=== PATIENT | female | born 2000 | race Caucasian/White ===

== ENCOUNTER 2019-10-20 08:00 | Outpatient (CLI) | payer BC ==
--- NOTE | 2019-10-20 08:08 | XRAY Report ---
Reason: RIGHT SHOULDER PAIN Procedure Date: 10/20/2019 Accession Number: [id number] / [id number] Procedure: WCP - Shoulder 3 View RT CPT Code: Final Report FULL RESULT: EXAM: RIGHT SHOULDER RADIOGRAPHY EXAM DATE: 10/20/2019 07:59 AM. CLINICAL HISTORY: RIGHT SHOULDER PAIN. COMPARISON: None. TECHNIQUE: 3 views. FINDINGS: Bones: Normal. No fracture or bone lesion. Joints: The glenohumeral and acromioclavicular joints are normal. Soft tissues: The visualized hemithorax is unremarkable. No soft tissue swelling. IMPRESSION: Normal shoulder radiography. RADIA
== END 2019-10-20 23:59 | disposition home or self-care (01) ==
LOC: DI.WCP 08:00
PROVIDERS: ATTEND Nurse Practitioner Family
DX: M25.511 Pain in right shoulder (principal)

== ENCOUNTER 2020-10-30 08:00 | Outpatient (CLI) | payer BC, OTHER ==
[2020-10-30 17:45] LABS: BASOPHILS # (AUTO) 0.1 10^3/uL (0.0-0.1); BASOPHILS % (AUTO) 0.9 %; EOSINOPHILS # (AUTO) 0.2 10^3/uL (0.0-0.7); EOSINOPHILS % (AUTO) 1.8 %; HCT - HEMATOCRIT 37.7 % (37.0-47.0); HGB - HEMOGLOBIN 12.1 g/dL (12.0-16.0); LYMPHOCYTES # (AUTO) 2.1 10^3/uL (1.5-3.5); LYMPHOCYTES % (AUTO) 22.5 %; MEAN CORPUSCULAR HEMOGLOBIN 27.4 pg (27.0-31.0); MEAN CORPUSCULAR HGB CONC 32.1 g/dL (32.0-36.0); MEAN CORPUSCULAR VOLUME 85.5 fL (81.0-99.0); MEAN PLATELET VOLUME 9.1 fL (7.9-10.8); MONOCYTES # (AUTO) 0.7 10^3/uL (0.0-1.0); NEUTROPHILS # (AUTO) 6.2 10^3/uL (1.5-6.6); NEUTROPHILS % (AUTO) 66.6 %; PLT - PLATELET COUNT 532 10^3/uL (130-450); RED BLOOD COUNT 4.41 10^6/uL (4.20-5.40); RED CELL DISTRIBUTION WIDTH 12.7 % (12.0-15.0); WHITE BLOOD COUNT 9.2 x10^3/uL (4.8-10.8)
[2020-10-30 18:13] LABS: ALBUMIN 3.9 g/dL (3.2-5.5); ALBUMIN/GLOBULIN RATIO 1.1 (1.0-2.2); BILIRUBIN,TOTAL 0.7 mg/dL (0.2-1.0); CALCIUM 9.7 mg/dL (8.5-10.3); CREATININE 0.4 mg/dL (0.4-1.0); POTASSIUM 4.2 mmol/L (3.5-5.0); TOTAL PROTEIN 7.5 g/dL (6.7-8.2)
== END 2020-10-30 23:59 | disposition home or self-care (01) ==
LOC: LAB.WCP 08:00
PROVIDERS: ATTEND Nurse Practitioner Family
DX: R19.7 Diarrhea, unspecified (principal)
CPT/HCPCS: 36415; 80053; 85025

== ENCOUNTER 2021-09-20 09:34 | Outpatient (CLI) | payer OTHER ==
[2021-09-20 12:37] LABS: BASOPHILS # (AUTO) 0.1 10^3/uL (0.0-0.1); BASOPHILS % (AUTO) 0.8 %; EOSINOPHILS # (AUTO) 0.1 10^3/uL (0.0-0.7); EOSINOPHILS % (AUTO) 1.2 %; HCT - HEMATOCRIT 38.2 % (37.0-47.0); HGB - HEMOGLOBIN 11.9 g/dL (12.0-16.0); LYMPHOCYTES # (AUTO) 1.7 10^3/uL (1.5-3.5); LYMPHOCYTES % (AUTO) 20.1 %; MEAN CORPUSCULAR HEMOGLOBIN 26.1 pg (27.0-31.0); MEAN CORPUSCULAR HGB CONC 31.2 g/dL (32.0-36.0); MEAN CORPUSCULAR VOLUME 83.8 fL (81.0-99.0); MEAN PLATELET VOLUME 9.2 fL (7.9-10.8); MONOCYTES # (AUTO) 0.5 10^3/uL (0.0-1.0); MONOCYTES % (AUTO) 6.4 %; NEUTROPHILS % (AUTO) 71.1 %; PLT - PLATELET COUNT 575 10^3/uL (130-450); RED BLOOD COUNT 4.56 10^6/uL (4.20-5.40); RED CELL DISTRIBUTION WIDTH 13.7 % (12.0-15.0); WHITE BLOOD COUNT 8.5 x10^3/uL (4.8-10.8)
[2021-09-20 13:27] LABS: ALBUMIN/GLOBULIN RATIO 1.1 (1.0-2.2); ALKALINE PHOSPHATASE 68 IU/L (42-121); ALT ALANINE AMINOTRANSFERASE 21 IU/L (10-60); AST ASPARTATE AMINOTRANSFERASE 17 IU/L (10-42); BILIRUBIN,TOTAL 0.9 mg/dL (0.2-1.0); BUN - BLOOD UREA NITROGEN 13 mg/dL (6-20); CALCIUM 9.5 mg/dL (8.5-10.3); CARBON DIOXIDE - CO2 27 mmol/L (21-32); CHLORIDE 102 mmol/L (101-111); CHOL/HDL RATIO 3.5 (<4.4); CHOLESTEROL 157 mg/dL; CREATININE 0.6 mg/dL (0.4-1.0); GFR - MDRD 124 (>89); GLUCOSE 101 mg/dL (70-100); HDL CHOLESTEROL 45 mg/dL; LDL CHOLESTEROL,CALCULATED 91 mg/dL; POTASSIUM 4.3 mmol/L (3.5-5.0); SODIUM 137 mmol/L (135-145); TOTAL PROTEIN 7.7 g/dL (6.7-8.2); TRIGLYCERIDES 105 mg/dL; VLDL CHOLESTEROL 21 mg/dL
[2021-09-20 13:32] LABS: THYROID STIMULATING HORMONE 0.82 uIU/mL (0.34-5.60)
[2021-09-20 13:51] LABS: ESTIMATED AVERAGE GLUCOSE 108 mg/dL (70-100); HEMOGLOBIN A1c% 5.4 % (4.27-6.07)
== END 2021-09-20 09:35 | disposition home or self-care (01) ==
LOC: LAB.N 09:34
PROVIDERS: ATTEND Physician Assistant
DX: K76.0 Fatty (change of) liver, not elsewhere classified (principal); Z13.9 Encounter for screening, unspecified; Z13.1 Encounter for screening for diabetes mellitus; Z13.29 Encounter for screening for other suspected endocrine disorder
CPT/HCPCS: 36415; 80053; 80061; 83036; 83721; 84443; 85025

== ENCOUNTER 2022-04-15 11:04 | Day surgery (SDC) | payer MEDICAID ==
[2022-04-15 11:22] LABS: HCG UR QUAL NEGATIVE
[2022-04-15] MEDS ORDERED: LACTATED RINGERS 1,000 ML IV ONE (11:29)
[2022-04-15] MEDS ORDERED: LIDOCAINE 1% 50 ML MDV ONE (13:45)
[2022-04-15] MEDS ORDERED: HYDROmorphone 0.5 MG/0.5 ML SYRINGE IVP PRN (13:49)
[2022-04-15] MEDS ORDERED: METOCLOPRAMIDE 10 MG/2 ML VIAL IVP PRN (13:49)
[2022-04-15] MEDS ORDERED: ePHEDrine 50 MG/ML VIAL IVP PRN (13:49)
[2022-04-15] MEDS ORDERED: ONDANSETRON 4 MG/2 ML VIAL IVP PRN (13:49)
[2022-04-15] MEDS ORDERED: fentaNYL 100 MCG/2 ML VIAL IVP PRN (13:49)
[2022-04-15] MEDS ORDERED: ATROPINE ABBOJECT 1 MG/10 ML SYRINGE IVP PRN (13:49)
[2022-04-15] MEDS ORDERED: MORPHINE 2 MG/ML CARPUJECT IVP PRN (13:49)
[2022-04-15] MEDS ORDERED: NALOXONE 0.4 MG/ML VIAL IVP PRN (13:49)
--- NOTE | 2022-04-15 13:49 | ANESTHESIA ---
Pre-Anesthesia VS, & Labs - Diagnosis desires IUD - Procedure IUD placement Vital Signs: Temp Pulse Resp BP Pulse Ox 36.7 C 75 18 158/96 H 98 04/15/22 11:18 04/15/22 11:18 04/15/22 11:18 04/15/22 11:18 04/15/22 11:18 Height: 5 ft 7 in Weight (kg): 127.9 kg Body Mass Index: 44.1 BMI Classification: Morbidly Obese - NPO >8 hours - Is Patient ?: No Home Medications and Allergies Home Medications: Ambulatory Orders No Known Home Medications 04/09/22 No Known Home Medications 04/09/22 Allergies/Adverse Reactions: Allergies Allergy/AdvReac Type Severity Reaction Status Date / Time No Known Drug Allergies Allergy Verified 04/14/22 11:55 Anes History & Medical History - Anesthetic History Anesthesia Complications: reports: No previous complications Family history of Anesthesia Complications: Denies Family history of Malignant Hyperthermia: Denies - Medical History Cardiovascular: reports: None Pulmonary: reports: None Gastrointestinal: reports: None Urinary: reports: None Musculoskeletal: reports: None Endocrine/Autoimmune: reports: None Skin: reports: Eczema - Surgical History General: reports: Cholecystectomy Exam General: Alert, Oriented x3, Cooperative Dental: WNL Mouth Openin Fingerbreadth Neck Mobility: Normal Mallampati classification: III Thyromental Distance: less than 4 cm Respiratory: Lungs clear Cardiovascular: Regular rate Plan Anesthesia Type: General Consent for Procedure(s) Verified and Reviewed: Yes Code Status: Attempt Resuscitation ASA classification: 2-Mild systemic disease Is this case an emergency?: No
[2022-04-15] MEDS ORDERED: LEVONORGESTREL 20 MCG/24H IUD IY ONE ×2 (13:52→14:42)
[2022-04-15] MEDS ORDERED: LACTATED RINGERS 1,000 ML IV SCH (14:00)
[2022-04-15] MEDS ORDERED: DEXAMETHASONE 4 MG/ML VIAL ONE ×2 (14:08→14:26)
[2022-04-15] MEDS ORDERED: LIDOCAINE-MPF 2% 5 ML VIAL ONE (14:08)
[2022-04-15] MEDS ORDERED: PROPOFOL 200 MG/20 ML VIAL IVP ONE (14:08)
[2022-04-15] MEDS ORDERED: MIDAZOLAM 2 MG/2 ML VIAL ONE (14:08)
[2022-04-15] MEDS ORDERED: ROCURONIUM 50 MG/5 ML VIAL ONE (14:08)
[2022-04-15] MEDS ORDERED: LIDOCAINE 1% 50 ML MDV SUBQ ONE (14:24)
[2022-04-15] MEDS ORDERED: LACTATED RINGERS 300 ML IV ONE (14:35)
--- NOTE | 2022-04-15 14:36 | OPERATIVE REPORT ---
Operative Report - General Procedure Date: 04/15/22 Planned Procedure: Exam under anesthesia, cervical dilation, IUD placement Pre-Op Diagnosis: Contraceptive management, pelvic pain Procedure Performed: Exam under anesthesia, cervical dilation, IUD placement. Post Op Diagnosis: Contraceptive management, IUD insertion - Procedure Note Primary Surgeon: Christine, Anesthesia Provider: Vesna Whitehead CRNA Anesthesia Technique: General ET tube Estimated Blood Loss (mL): 5 Complications: None - Other Other Information/Narrative: Patient had 2 attempts at office placement of IUD and was unable to tolerate the pain. She was counseled risk, benefits, alternatives of IUD including bleeding, cramping, perforation. She decided to go forth with placement in the OR. Patient is taken to the OR where general anesthesia was obtained. She was prepped and draped in the usual sterile fashion using Hibiclens. Speculum was placed in the vagina with good visualization of the cervix. The anterior lip of the cervix were grasped with a single-tooth tenaculum and straightened. A cervical block was placed using 12 mL of 1% lidocaine. The uterus was sounded to 9 cm. The IUD was inserted through the cervical os and deployed to the first marker. After allowing it time to expand, is advanced to the fundus and deployed the remainder of the way. Strings were trimmed above the level of the hymen. All instruments were removed from vagina, and good hemostasis was noted. Counts were correct and patient was taken to the PACU in stable condition. Lot number [id number]
[2022-04-15] MEDS ORDERED: IBUPROFEN 600 MG TABLET PO ONE ×2 (14:39→15:20)
[2022-04-15] MEDS ORDERED: SUGAMMADEX 200 MG/2 ML VIAL IVP ONE (14:41)
[2022-04-15 15:04] VITALS: BP 134/77
--- NOTE | 2022-04-15 17:18 | ANESTHESIA POST OP EVALUATION ---
Anesthesia Post Eval - Post Anesthesia Eval Vitals: Last Vital Signs Temp 36.7 C 04/15/22 15:03 Pulse 77 04/15/22 15:03 Resp 16 04/15/22 15:03 BP 134/77 H 04/15/22 15:03 Pulse Ox 100 04/15/22 15:03 CV Function Including HR & BP: Stable Pain Control: Satisfactory Nausea & Vomiting: Negative Mental Status: Baseline Respiratory Status: Airway Patent Hydration Status: Satisfactory Anesthesia Complications: None
== END 2022-04-15 11:05 | disposition home or self-care (01) ==
LOC: SDS 11:04
PROVIDERS: ATTEND Obstetrics & Gynecology
DX: Z30.430 Encounter for insertion of intrauterine contraceptive device (principal); N92.0 Excessive and frequent menstruation with regular cycle; E66.01 Morbid (severe) obesity due to excess calories; Z32.02 Encounter for pregnancy test, result negative; Z68.42 Body mass index [BMI] 45.0-49.9, adult
CPT/HCPCS: 58300; 81025; A9270; J7120; J7298

== ENCOUNTER 2022-05-15 13:47 | Emergency (ER) | payer MEDICAID ==
[2022-05-15] MEDS ORDERED: HYDROmorphone 1 MG/ML CARPUJECT IVP STA ×2 (16:55→18:36)
[2022-05-15] MEDS ORDERED: ONDANSETRON 4 MG/2 ML VIAL IVP STA (16:55)
[2022-05-15] MEDS ORDERED: KETOROLAC 15 MG/ML VIAL IVP STA (16:55)
--- NOTE | 2022-05-15 16:56 | ED Physician Documentation ---
PD HPI ABD PAIN - Stated complaint Stated Complaint: FEMALE - Chief complaint Chief Complaint: Abd Pain - History obtained from History obtained from: Patient - Additional information Additional information: 22-year-old G0 had an IUD D placed with some difficulty last month and required general anesthesia for same. Starting this morning she has had severe nonradiating left lower quadrant pain that she has never had before. It is not associated with urinary complaints, vaginal bleeding or discharge. Review of Systems Ten Systems: 10 systems reviewed and negative Constitutional: reports: Reviewed and negative Cardiac: reports: Reviewed and negative Respiratory: reports: Reviewed and negative PD PAST MEDICAL HISTORY - Past Medical History Cardiovascular: None Respiratory: None Endocrine/Autoimmune: None GI: None : None HEENT: None Psych: Depression, Anxiety, Panic attacks Musculoskeletal: None Derm: Eczema - Past Surgical History General: Cholecystectomy - Present Medications Home Medications: Ambulatory Orders Medication Instructions Recorded Confirmed Oxycodone HCl/Acetaminophen 1 - 2 each PO Q6H PRN #14 tablet 05/15/22 [Percocet 5-325 mg Tablet] - Allergies Allergies/Adverse Reactions: Allergies Allergy/AdvReac Type Severity Reaction Status Date / Time No Known Drug Allergies Allergy Verified 05/15/22 14:24 PD ED PE NORMAL - Vitals Vital signs reviewed: Yes - General General: Alert and oriented X 3, Other (Tearful and in pain) - HEENT HEENT: PERRL, EOMI - Neck Neck: Supple, no meningeal sign, No bony TTP - Cardiac Cardiac: RRR, No murmur - Respiratory Respiratory: No respiratory distress, Clear bilaterally - Abdomen Abdomen: Normal bowel sounds, Soft, Other (Focal left pelvic tenderness without surgical signs) - Back Back: No CVA TTP - Derm Derm: Normal color, Warm and dry - Extremities Extremities: No edema, No calf tenderness / cord - Neuro Neuro: Alert and oriented X 3, Normal speech Results - Vitals Vitals: Vital Signs - 24 hr 05/15/22 05/15/22 14:21 16:24 Temperature 36.5 C Heart Rate 68 77 Respiratory 18 18 Rate Blood Pressure 165/92 H 131/86 H O2 Saturation 100 100 Oxygen O2 Source Room air - Labs Labs: Laboratory Tests 05/15/22 05/15/22 05/15/22 16:58 17:06 17:06 WBC 11.1 H RBC 4.70 Hgb 12.3 Hct 38.5 MCV 81.9 MCH 26.2 L MCHC 31.9 L RDW 13.3 Plt Count 549 H MPV 9.2 Neut # (Auto) 7.3 H Lymph # (Auto) 2.7 [place] # (Auto) 0.8 Eos # (Auto) 0.1 Baso # (Auto) 0.1 Absolute Nucleated RBC 0.00 Nucleated RBC % 0.0 Sodium 138 Potassium 2.8 L Chloride 110 Carbon Dioxide 22 Anion Gap 6.0 BUN 7 Creatinine 0.5 Estimated GFR (MDRD) 152 Glucose 75 Calcium 7.1 L Urine Color YELLOW Urine Clarity CLEAR Urine pH 7.0 Ur Specific [place] 1.010 Urine Protein NEGATIVE Urine Glucose (UA) NEGATIVE Urine Ketones NEGATIVE Urine Occult Blood LARGE H Urine Nitrite NEGATIVE Urine Bilirubin NEGATIVE Urine Urobilinogen 0.2 (NORMAL) Ur Leukocyte Esterase NEGATIVE Urine RBC 6-10 H Urine WBC 0-3 Ur Squamous Epith Cells MOD Squamous H Urine Bacteria Few Ur Microscopic Review INDICATED Urine Culture Comments NOT INDICATED Urine HCG, Qual NEGATIVE PD MEDICAL DECISION MAKING - ED course ED course: 22-year-old woman with acute left pelvic pain starting today. She is a month out from an IUD placement. Pain much better but coming back a bit after medications with Toradol and Dilaudid here. Ultrasound of the pelvis interpreted contemporaneously by me demonstrates findings of likely a ruptured left ovarian cyst without evidence of torsion, some concern for PCOS which was discussed with the patient. Departure - Departure Disposition: 01 Home, Self Care Clinical Impression: Left ovarian cyst Condition: Good Record reviewed to determine appropriate education?: Yes Instructions: ED Pelvic Pain [facility] Prescriptions: Oxycodone HCl/Acetaminophen [Percocet 5-325 mg Tablet] 1 - 2 each PO Q6H PRN #14 tablet PRN Reason: pain Comments: As discussed, the ultrasound was concerning that she might have polycystic ovarian syndrome. You can follow-up with Dr. Dominguez or Meg Dunbar regarding this. I sent your prescriptions electronically to [facility] in [place]. Call your doctor to arrange a follow-up appointment, make the next available appointment. In the interim, return anytime if worse or if new symptoms develop. I am prescribing a short course of narcotic pain medication for you. These are potentially dangerous and addictive medications that should be used carefully. These medications may constipate you. Take an modf-oym-adajyzw stool softener (docusate) twice daily with plenty of water while taking these medications. If you go 24 hours without a bowel movement, take fcee-odm-nosfmlj miralax, per package instructions. Do not drink or drive while taking these medications. If you received narcotic or sedating medications while in the emergency department, do not drive for 24 hours. Store this medication in a safe, secure place and out of reach of children. It is a violation of federal law to give or sell this medication to another person or to use in a manner other than prescribed. The ED will not refill narcotic prescriptions, including prescriptions lost or stolen. To dispose of unwanted medications: 1. [facility] at [address] in [place] has a medication drop box. They accept prescription medications (in pill form) Thursday through Thursday 9:00 a.m. to 5:00 p.m. 2. The [facility] accepts prescription medications (in pill form only) for disposal year round. Call for more information. 3. Contact the [facility] for the next [facility] sponsored prescription drug collection event. , [phone], or [phone]; Note that many narcotic pain relievers also contain Tylenol/acetaminophen. Please ensure that your total dose of acetaminophen from all sources does not exceed 3 g (3000 mg) per day. Forms: Activity restrictions
[2022-05-15 17:20] LABS: BILIRUBIN,URINE NEGATIVE (NEGATIVE); GLUCOSE, URINE (UA) NEGATIVE (NEGATIVE); KETONES,URINE (UA) NEGATIVE (NEGATIVE); LEUKOCYTE ESTERASE, URINE NEGATIVE (NEGATIVE); NITRITE,URINE NEGATIVE (NEGATIVE); OCCULT BLOOD,URINE LARGE (NEGATIVE); PROTEIN,URINE NEGATIVE (NEGATIVE); UROBILINOGEN,URINE 0.2 (NORMAL) E.U./dL (NORMAL)
[2022-05-15 17:22] LABS: BASOPHILS # (AUTO) 0.1 10^3/uL (0.0-0.1); BASOPHILS % (AUTO) 0.8 %; EOSINOPHILS # (AUTO) 0.1 10^3/uL (0.0-0.7); HCT - HEMATOCRIT 38.5 % (37.0-47.0); HGB - HEMOGLOBIN 12.3 g/dL (12.0-16.0); LYMPHOCYTES # (AUTO) 2.7 10^3/uL (1.5-3.5); LYMPHOCYTES % (AUTO) 24.2 %; MEAN CORPUSCULAR HEMOGLOBIN 26.2 pg (27.0-31.0); MEAN CORPUSCULAR HGB CONC 31.9 g/dL (32.0-36.0); MEAN CORPUSCULAR VOLUME 81.9 fL (81.0-99.0); MEAN PLATELET VOLUME 9.2 fL (7.9-10.8); MONOCYTES # (AUTO) 0.8 10^3/uL (0.0-1.0); MONOCYTES % (AUTO) 7.6 %; NEUTROPHILS # (AUTO) 7.3 10^3/uL (1.5-6.6); NEUTROPHILS % (AUTO) 66.2 %; PLT - PLATELET COUNT 549 10^3/uL (130-450); RED CELL DISTRIBUTION WIDTH 13.3 % (12.0-15.0); WHITE BLOOD COUNT 11.1 x10^3/uL (4.8-10.8)
[2022-05-15 17:23] LABS: CLARITY,URINE CLEAR (CLEAR); HCG UR QUAL NEGATIVE
[2022-05-15 17:32] LABS: CALCIUM 7.1 mg/dL (8.5-10.3); CREATININE 0.5 mg/dL (0.4-1.0); POTASSIUM 2.8 mmol/L (3.5-5.0)
[2022-05-15 17:34] LABS: BACTERIA,URINE Few /HPF (None Seen); SQUAMOUS EPITHELIAL CELL,UR MOD Squamous (<= Few); WBC,URINE 0-3 /HPF (0-5)
--- NOTE | 2022-05-15 18:27 | Ultrasound Report ---
PROCEDURE: Pelvic w/Transvag+Doppler Comp INDICATIONS: l pelvic pn TECHNIQUE: Real-time scanning was performed of the pelvic organs, with image documentation. Additional endovagi nal scanning was necessary due to incomplete visualization of the adnexal and endometrial structures by transabdominal scanning. Doppler interrogation was performed of the ovaries bilaterally. COMPARISON: None. FINDINGS: Uterine body measures 3.7 x 5.4 x 8.8 cm. IUD in appropriate position with arms positioned in the cor nua. No uterine mass. Normal thickness endometrium. Right ovary measures 2.6 x 3.0 x 3.1 cm. There are numerous subcentimeter follicles at the peripheral aspect of the right ovary, greater than 12 identified. No other mass or significant abnormality in t he right ovary. Left ovary measures 1.7 x 3.4 x 3.7 cm. Dominant follicle in the left ovary measuring 1.6 cm with no other significant follicular activity or mass. Both ovaries demonstrate normal arterial and venous blood flow. Small volume free fluid in the cul-de-sac. IMPRESSION: Thick walled left ovarian cyst could represent a ruptured hemorrhagic cyst. Numerous subcentimeter follicles in the peripheral right ovary are nonspecific but raise some concern for polycystic ovarian syndrome in the proper clinical setting. IUD in appropriate position. Small volume free fluid in the cul-de-sac is within physiologic normal limits. Reviewed by: Glen Mauricio MD on 05/15/2022 6:26 PM PDT Approved by: Glen Mauricio MD on 05/15/2022 6:26 PM PDT Station ID: [id number]
[2022-05-15 18:43] VITALS: BP 132/88
== END 2022-05-15 19:20 | disposition home or self-care (01) ==
LOC: ED 13:47
DX: N83.292 Other ovarian cyst, left side (principal); R10.2 Pelvic and perineal pain; F41.9 Anxiety disorder, unspecified; F32.A Depression, unspecified; Z97.5 Presence of (intrauterine) contraceptive device
CPT/HCPCS: 36415; 76830; 76856; 80048; 81001; 81025; 85025; 93975; 96374; 96375; 96376; 99283; 99284; J1170; 81003; 87086

== ENCOUNTER 2022-06-30 15:38 | Outpatient (CLI) | payer MEDICAID ==
[2022-07-01 05:09] LABS: HBsAG SCREEN Negative (Negative); HCV AB <0.1 s/co ratio (0.0-0.9)
[2022-07-01 06:09] LABS: RPR Non Reactive (Non Reactive)
[2022-07-01 10:08] LABS: HIV SCREEN 4TH GENERATION Non Reactive (Non Reactive)
== END 2022-06-30 15:39 | disposition home or self-care (01) ==
LOC: LAB.N 15:38
PROVIDERS: ATTEND Nurse Practitioner Obstetrics & Gynecology
DX: Z11.3 Encounter for screening for infections with a predominantly sexual mode of transmission (principal)
CPT/HCPCS: 36415; 86592; 86803; 87340; 87389

== ENCOUNTER 2022-07-06 21:32 | Emergency (ER) | payer MEDICAID ==
[2022-07-06 22:13] LABS: BASOPHILS # (AUTO) 0.1 10^3/uL (0.0-0.1); BASOPHILS % (AUTO) 0.6 %; EOSINOPHILS # (AUTO) 0.1 10^3/uL (0.0-0.7); EOSINOPHILS % (AUTO) 1.2 %; HCT - HEMATOCRIT 37.8 % (37.0-47.0); HGB - HEMOGLOBIN 12.1 g/dL (12.0-16.0); LYMPHOCYTES # (AUTO) 2.3 10^3/uL (1.5-3.5); LYMPHOCYTES % (AUTO) 24.3 %; MEAN CORPUSCULAR HEMOGLOBIN 25.9 pg (27.0-31.0); MEAN CORPUSCULAR VOLUME 80.8 fL (81.0-99.0); MEAN PLATELET VOLUME 8.9 fL (7.9-10.8); MONOCYTES # (AUTO) 0.7 10^3/uL (0.0-1.0); MONOCYTES % (AUTO) 6.8 %; NEUTROPHILS # (AUTO) 6.3 10^3/uL (1.5-6.6); NEUTROPHILS % (AUTO) 66.9 %; PLT - PLATELET COUNT 503 10^3/uL (130-450); RED BLOOD COUNT 4.68 10^6/uL (4.20-5.40); RED CELL DISTRIBUTION WIDTH 13.7 % (12.0-15.0); WHITE BLOOD COUNT 9.5 x10^3/uL (4.8-10.8)
--- NOTE | 2022-07-06 22:15 | ED Physician Documentation ---
PD HPI FEMALE - Stated complaint Stated Complaint: FEMALE - Chief complaint Chief Complaint: Abd Pain - History obtained from History obtained from: Patient - History of Present Illness Timing - onset: How many days ago (3) Timing - details: Gradual onset, Constant, Waxing and waning Pain level max: 7 Associated symptoms: Abdominal pain, Pelvic pain. No: Fever, Vaginal bleeding, Vaginal discharge, Dysuria, Urinary frequency Contributing factors: No: Recently seen: Emergency Dept (T+R from this ED 2 months ago for similar symptoms) - Additional information Additional information: c/o "pressure and a lot of pain where my ovaries are" (per patient). She notes bilateral pelvic and lower abdominal pain x 3 days, intermittent until this afternoon when it became constant and progressive in intensity. Pain is worse with movement, palpation. She says it feels similar to the pain she had when she was T+R from this ED in May and found to have a ruptured hemorrhagic ovarian cyst (although that was her only episode in the past and at that time it was unilateral). Denies nausea, vomiting Review of Systems Constitutional: denies: Fever, Chills, Sweats Cardiac: reports: Reviewed and negative Respiratory: reports: Reviewed and negative GI: reports: Abdominal Pain. denies: Nausea, Vomiting, Constipation, Diarrhea : denies: Dysuria, Frequency, Hematuria, Now [facility] PD PAST MEDICAL HISTORY - Past Medical History Cardiovascular: None Respiratory: None Endocrine/Autoimmune: None GI: None : None HEENT: None Psych: Depression, Anxiety, Panic attacks Musculoskeletal: None Derm: Eczema - Past Surgical History General: Cholecystectomy - Present Medications Home Medications: Ambulatory Orders Medication Instructions Recorded Confirmed Oxycodone HCl/Acetaminophen 1 each PO Q6HR PRN #10 tablet 07/07/22 [Oxycodone-Acetaminophn 7.5-325] - Allergies Allergies/Adverse Reactions: Allergies Allergy/AdvReac Type Severity Reaction Status Date / Time No Known Drug Allergies Allergy Verified 07/06/22 21:55 PD ED PE NORMAL - Vitals Vital signs reviewed: Yes - General General: Alert and oriented X 3, No acute distress, Well developed/nourished - HEENT HEENT: Moist mucous membranes - Cardiac Cardiac: RRR, No murmur - Respiratory Respiratory: No respiratory distress, Clear bilaterally - Abdomen Abdomen: Soft, Non distended, Other (mild TTP across lower abdomen, most pronounced in BLQ, no rebound or guarding) - Back Back: No CVA TTP Results - Vitals Vitals: Vital Signs - 24 hr 07/06/22 07/06/22 07/06/22 21:51 22:41 23:19 Temperature 37.0 C Heart Rate 67 83 84 Respiratory 18 16 16 Rate Blood Pressure 150/111 H 127/86 H 127/83 H O2 Saturation 99 99 99 07/07/22 07/07/22 07/07/22 00:05 01:32 02:34 Temperature 36.6 C 37.1 C Heart Rate 78 108 H 65 Respiratory 14 16 16 Rate Blood Pressure 126/66 110/76 126/75 O2 Saturation 97 97 97 Oxygen O2 Source Room air - Labs Labs: Laboratory Tests 07/06/22 07/06/22 07/06/22 22:03 22:03 22:07 WBC 9.5 RBC 4.68 Hgb 12.1 Hct 37.8 MCV 80.8 L MCH 25.9 L MCHC 32.0 RDW 13.7 Plt Count 503 H MPV 8.9 Neut # (Auto) 6.3 Lymph # (Auto) 2.3 [place] # (Auto) 0.7 Eos # (Auto) 0.1 Baso # (Auto) 0.1 Absolute Nucleated RBC 0.00 Nucleated RBC % 0.0 Sodium Potassium Chloride Carbon Dioxide Anion Gap BUN Creatinine Estimated GFR (MDRD) Glucose Calcium Total Bilirubin AST ALT Alkaline Phosphatase Total Protein Albumin Globulin Albumin/Globulin Ratio Lipase Urine Color YELLOW Urine Clarity HAZY Urine pH 6.5 Ur Specific [place] 1.020 Urine Protein NEGATIVE Urine Glucose (UA) NEGATIVE Urine Ketones NEGATIVE Urine Occult Blood MODERATE H Urine Nitrite NEGATIVE Urine Bilirubin NEGATIVE Urine Urobilinogen 1 (NORMAL) Ur Leukocyte Esterase NEGATIVE Urine RBC 11-25 H Urine WBC 4-5 Ur Squamous Epith Cells MANY Squamous H Urine Bacteria Few Ur Microscopic Review INDICATED Urine Culture Comments NOT INDICATED Urine HCG, Qual NEGATIVE 07/06/22 22:07 WBC RBC Hgb Hct MCV MCH MCHC RDW Plt Count MPV Neut # (Auto) Lymph # (Auto) [place] # (Auto) Eos # (Auto) Baso # (Auto) Absolute Nucleated RBC Nucleated RBC % Sodium 137 Potassium 3.8 Chloride 102 Carbon Dioxide 25 Anion Gap 10.0 BUN 10 Creatinine 0.6 Estimated GFR (MDRD) 123 Glucose 109 H Calcium 9.6 Total Bilirubin 0.5 AST 16 ALT 20 Alkaline Phosphatase 75 Total Protein 7.9 Albumin 4.3 Globulin 3.6 Albumin/Globulin Ratio 1.2 Lipase 32 Urine Color Urine Clarity Urine pH Ur Specific [place] Urine Protein Urine Glucose (UA) Urine Ketones Urine Occult Blood Urine Nitrite Urine Bilirubin Urine Urobilinogen Ur Leukocyte Esterase Urine RBC Urine WBC Ur Squamous Epith Cells Urine Bacteria Ur Microscopic Review Urine Culture Comments Urine HCG, Qual - Rads (name of study) CT A/P with IV contrast Radiology: Prelim report reviewed, See rad report PD MEDICAL DECISION MAKING - ED course Complexity details: reviewed old records, reviewed results, re-evaluated patient, considered differential, d/w patient ED course: Ultrasound is not available at this hour at [facility]. CT A/P with IV contrast performed and unrevealing regarding source of patient's symptoms. A right ovarian cyst is noted, but only 2cm diameter and thus not likely to be causing symptoms. Incidental note of small fluid collection in GB fossa which likely represents seroma, though radiologist lists other possibilities including bilioma, abscess. I doubt abscess (she is entirely nontender in RUQ, she is afebrile, and normal WBC). Bilioma would seem unlikely nearly 1.5 years after her surgery. This is an incidental finding which I discussed with patient and instructed her to follow up with her PMD regarding her symptoms but also to mention this other finding to ascertain whether further tests are needed. I am prescribing a short course of short-acting opioid medication for this patient. I have reviewed the patient's [employer] and no concerning findings were noted. I have discussed with the patient that opioids are for short term therapy only and will not be refilled from the ED. Departure - Departure Disposition: 01 Home, Self Care Clinical Impression: Pelvic pain in female Condition: Good Instructions: ED Pelvic Pain [facility]O Follow-Up: Joycelyn Diego PA [Primary Care Provider] - (2-3 days ) Prescriptions: Oxycodone HCl/Acetaminophen [Oxycodone-Acetaminophn 7.5-325] 1 each PO Q6HR PRN #10 tablet PRN Reason: Pain Comments: There were no concerning findings on the blood tests performed tonight. The CT scan shows a small (2 cm) right ovarian cyst; this is unlikely to be the source of your discomfort given its small size. There are no other findings on the CT scan to explain the cause of your pain. An incidental finding on the CT scan was a small fluid collection next to your liver where your gallbladder used to be. The radiologist opines this is most likely a seroma, which is a benign collection of fluid that typically accumulates after a surgery in the area of the procedure. However, there are other possible explanations for this finding such as a bile leak. I recommend you discuss this finding with your primary care provider; further testing and/or referral to a specialist (surgeon) might be needed to determine the nature of this finding. A prescription for oxycodone/acetaminophen (percocet; opiate pain medication) has been electronically submitted to [facility] pharmacy in [place]. I am prescribing a short course of narcotic pain medication for you. These are potentially dangerous and addictive medications that should be used carefully. These medications may constipate you. Take an yfeo-mic-aatxjpv stool softener (docusate) twice daily with plenty of water while taking these medications. If you go 24 hours without a bowel movement, take tklg-fdf-wcrlwmu miralax, per package instructions. Do not drink or drive while taking these medications. If you received narcotic or sedating medications while in the emergency department, do not drive for 24 hours. Store this medication in a safe, secure place and out of reach of children. It is a violation of federal law to give or sell this medication to another person or to use in a manner other than prescribed. The ED will not refill narcotic prescriptions, including prescriptions lost or stolen. To dispose of unwanted medications: 1. [facility] at [address] in [place] has a medication drop box. They accept prescription medications (in pill form) Thursday through Thursday 9:00 a.m. to 5:00 p.m. 2. The [facility] Department accepts prescription medications (in pill form only) for disposal year round. Call for more information. 3. Contact the [facility] for the next [facility] sponsored prescription drug collection event. , [phone], or [phone]; Forms: Activity restrictions Discharge Date/Time: 07/07/22 02:34
[2022-07-06 22:19] LABS: BILIRUBIN,URINE NEGATIVE (NEGATIVE); GLUCOSE, URINE (UA) NEGATIVE (NEGATIVE); KETONES,URINE (UA) NEGATIVE (NEGATIVE); LEUKOCYTE ESTERASE, URINE NEGATIVE (NEGATIVE); NITRITE,URINE NEGATIVE (NEGATIVE); OCCULT BLOOD,URINE MODERATE (NEGATIVE); PH,URINE 6.5 PH (5.0-7.5); PROTEIN,URINE NEGATIVE (NEGATIVE); UROBILINOGEN,URINE 1 (NORMAL) E.U./dL (NORMAL)
[2022-07-06 22:22] LABS: CLARITY,URINE HAZY (CLEAR)
[2022-07-06 22:28] LABS: ALBUMIN 4.3 g/dL (3.2-5.5); ALBUMIN/GLOBULIN RATIO 1.2 (1.0-2.2); BILIRUBIN,TOTAL 0.5 mg/dL (0.2-1.0); CALCIUM 9.6 mg/dL (8.5-10.3); CREATININE 0.6 mg/dL (0.4-1.0); POTASSIUM 3.8 mmol/L (3.5-5.0); TOTAL PROTEIN 7.9 g/dL (6.7-8.2)
[2022-07-06 22:29] LABS: BACTERIA,URINE Few /HPF (None Seen); SQUAMOUS EPITHELIAL CELL,UR MANY Squamous (<= Few)
[2022-07-06] MEDS ORDERED: KETOROLAC 15 MG/ML VIAL IVP STA (22:31)
[2022-07-06] MEDS ORDERED: HYDROmorphone 1 MG/ML CARPUJECT IVP STA (22:31)
[2022-07-06] MEDS ORDERED: iohexoL-300 100 ML VIAL ONE (22:46)
[2022-07-06 22:59] LABS: HCG UR QUAL NEGATIVE
[2022-07-06] MEDS ORDERED: iohexoL-300 100 ML VIAL IVP ONE (23:14)
--- NOTE | 2022-07-07 00:15 | CT Report ---
PROCEDURE: ABDOMEN/PELVIS W INDICATIONS: lower abdominal pain CONTRAST: 100 ML OMNI 300 TECHNIQUE: After the administration of intravenous contrast, 5 mm thick sections acquired from the diaphragms to the symphysis. 5 mm thick coronal and sagittal reformats were acquired. For radiation dose reducti on, the following was used: automated exposure control, adjustment of mA and/or kV according to domenico ent size. COMPARISON: Ultrasound 05/15/2022. FINDINGS: Image quality: Excellent. Lung bases:There is minimal dependent atelectasis. Heart: Heart is normal in size. ABDOMEN: Liver: No mass lesion. Gallbladder:There are surgical clips in the gallbladder fossa likely reflecting prior cholecystectom y. There is a small loculated fluid collection in the gallbladder fossa measuring approximately 3.1 x 1.6 cm in transverse dimension. No associated fat stranding. Biliary ducts: No biliary ductal dilatation. Pancreas: Unremarkable. Spleen: Normal in size. Adrenal Glands: No adrenal nodules. Kidneys and Ureters: No hydronephrosis. Stomach and Bowel: Stomach, small bowel loops, and colon are normal in caliber and wall thickness. N o pericecal inflammatory changes to suggest appendicitis. There is colonic diverticulosis without acu te diverticulitis. Peritoneum: No abnormal intraperitoneal fluid. No free air. Ventral Wall: No hernia. Abdominal Nodes: No retroperitoneal or mesenteric adenopathy by size criteria. Vessels: Aorta and inferior vena cava are normal in size. PELVIS: Pelvic Organs:An IUD is present within the uterus.There is a small right ovarian cyst measuring up to 2.0 cm. Bladder: Unremarkable. Pelvic Nodes: No enlarged lymph nodes. Miscellaneous: No inguinal hernias are seen. IMPRESSION: 1. No definite acute intra-abdominal abnormality. Specifically, no evidence of appendicitis or divert iculitis. 2. Small loculated fluid collection in the gallbladder fossa. The findings likely represent a seroma but the differential includes a biloma, abscess or possible distended cystic duct remnant. Reviewed by: Kalpesh Estes MD on 07/07/2022 12:14 AM PST Approved by: Kalpesh Estes MD on 07/07/2022 12:14 AM PST Station ID: [id number]
[2022-07-07 02:36] VITALS: BP 126/75
== END 2022-07-07 02:34 | disposition home or self-care (01) ==
LOC: ED 21:32
DX: R10.2 Pelvic and perineal pain (principal); N83.201 Unspecified ovarian cyst, right side
CPT/HCPCS: 36415; 74177; 80053; 81001; 81025; 83690; 85025; 96374; 99284; J1170; Q9967; 81003; 87086

== ENCOUNTER 2022-11-13 12:59 | Emergency (ER) | payer OTHER, MEDICAID ==
--- OUTSIDE RECORDS SUMMARY | 2022-11-13 13:52 | EXTERNAL MEDICAL SUMMARY RPT | Continuity of Care Document ---
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 (units ( unknown) date) 74.6 (50-75) % unknown) (unknown) (no (unknown) (unknown) New (units (unkno wn) date) unknown) (unknown) (no (unknown) (unknown) No Known Drug (units ( unknown) date) Allergies Allergy unknown) Verified 07/25/21 14:01 (unknown) (no (unknown) (unknown) No active (units (unkn own) date) medical problems unknown) (unknown) (no (unknown) (unknown) ONE (units (unkno wn) date) unknown) (unknown) (no (unknown) (unknown) ORDERED: Wet (units (u nknown) date) Prep unknown) (unknown) (no (unknown) (unknown) Ondansetron HCl (units (unknown) date) (Ondansetron 4 Mg unknown) Odt) 4 mg SL NOW ONE (unknown) (no (unknown) (unknown) Ordered: (units (unkno wn) date) unknown) (unknown) (no (unknown) (unknown) Orders (units (unkno wn) date) unknown) (unknown) (no (unknown) (unknown) Oxygen Delivery (units (unknown) date) Method 08/27/22 unknown) 13:28 (unknown) (no (unknown) (unknown) Oxygen Delivery (units (unknown) date) Method Room Air unknown) (unknown) (no (unknown) (unknown) PAGE 1 (units (unkno wn) date) unknown) (unknown) (no (unknown) (unknown) Patient (units (unkno wn) date) Disposition: Home unknown) (unknown) (no (unknown) (unknown) Patient History (units (unknown) date) unknown) (unknown) (no (unknown) (unknown) Patient is (units (unk nown) date) appropriate for unknown) outpatient management. (unknown) (no (unknown) (unknown) Patient's (units (unkn own) date) symptoms improved unknown) over duration of stay with above-stated therapies. (unknown) (no (unknown) (unknown) Patient: (units (unkno wn) date) Charito Telles unknown) MR#: [id number] (unknown) (no (unknown) (unknown) Plantar warts (units ( unknown) date) (-2018) unknown) (unknown) (no (unknown) (unknown) Plt Count (units (unkn own) date) (150-400) X103/uL unknown) (unknown) (no (unknown) (unknown) Plt Count 476 H (units (unknown) date) (150-400) X103/uL unknown) (unknown) (no (unknown) (unknown) Point of care (units ( unknown) date) testing: unknown) (unknown) (no (unknown) (unknown) Potassium (units (unkn own) date) (3.4-5.1) mmol/L unknown) (unknown) (no (unknown) (unknown) Potassium 3.2 L (units (unknown) date) (3.4-5.1) mmol/L unknown) (unknown) (no (unknown) (unknown) Test (units (unknown) date) Urine Stat unknown) (unknown) (no (unknown) (unknown) Prescriptions: (units (unknown) date) unknown) (unknown) (no (unknown) (unknown) Previous Rx's (units ( unknown) date) unknown) (unknown) (no (unknown) (unknown) Procedure Result (units (unknown) date) Verified unknown) (unknown) (no (unknown) (unknown) Pulse Oximetry (units (unknown) date) 100 08/27/22 unknown) 13:28 (unknown) (no (unknown) (unknown) Pulse Oximetry (units (unknown) date) 100 unknown) (unknown) (no (unknown) (unknown) Pulse Rate 75 (units ( unknown) date) 08/27/22 13:28 unknown) (unknown) (no (unknown) (unknown) Pulse Rate 75 (units ( unknown) date) unknown) (unknown) (no (unknown) (unknown) Questions are (units ( unknown) date) addressed and unknown) there is agreement with the plan and for follow-up. (unknown) (no (unknown) (unknown) RBC (4.0-5.2) (units ( unknown) date) X106/uL unknown) (unknown) (no (unknown) (unknown) RBC 4.49 (units (unkno wn) date) (4.0-5.2) X106/uL unknown) (unknown) (no (unknown) (unknown) RDW (11.6-14.8) (units (unknown) date) % unknown) (unknown) (no (unknown) (unknown) RDW 14.1 (units (unkno wn) date) (11.6-14.8) % unknown) (unknown) (no (unknown) (unknown) RUN DATE: (units (unkn own) date) 08/27/22 Specimen unknown) Inquiry (unknown) (no (unknown) (unknown) RUN TIME: 1636 (units (unknown) date) unknown) (unknown) (no (unknown) (unknown) Referrals: (units (unk nown) date) unknown) (unknown) (no (unknown) (unknown) Re08/27/22 (units ( unknown) date) Disch: Status: unknown) REG ER (unknown) (no (unknown) (unknown) Related Data (units (u nknown) date) unknown) (unknown) (no (unknown) (unknown) Respiratory Rate (units (unknown) date) 18 08/27/22 13:28 unknown) (unknown) (no (unknown) (unknown) Respiratory Rate (units (unknown) date) 18 unknown) (unknown) (no (unknown) (unknown) SOURCE: Vaginal (units (unknown) date) ENTR: unknown) 08/27/22-[address]: Joycelyn Diego P.A-C (unknown) (no (unknown) (unknown) SPDESC: RECD: (units ( unknown) date) 08/27/22-1608 unknown) SUBM DR: Lynn Ortega (unknown) (no (unknown) (unknown) SPEC #: (units (unkno wn) date) [id number] unknown) ANGELIA: 08/27/22-1600 STATUS: COMP REQ (unknown) (no (unknown) (unknown) Shared decision (units (unknown) date) making: unknown) (unknown) (no (unknown) (unknown) Signed By: (units (unk nown) date) unknown) (unknown) (no (unknown) (unknown) Site (units (unkno wn) date) unknown) (unknown) (no (unknown) (unknown) Smoking Status: (units (unknown) date) Never smoker unknown) (unknown) (no (unknown) (unknown) Social History (units (unknown) date) (Reviewed unknown) 01/07/21 @ 12:42 by Pieter Adorno MD) (unknown) (no (unknown) (unknown) Social (units (unkno wn) date) considerations unknown) that may affect disposition: (unknown) (no (unknown) (unknown) Sodium (137-145) (units (unknown) date) mmol/L unknown) (unknown) (no (unknown) (unknown) Sodium 140 (units (unk nown) date) (137-145) mmol/L unknown) (unknown) (no (unknown) (unknown) Source: patient (units (unknown) date) unknown) (unknown) (no (unknown) (unknown) Stand Alone (units (un known) date) Forms: Patient unknown) Portal/API (unknown) (no (unknown) (unknown) Stated (units (unkno wn) date) Complaint: pelvic unknown) pain T-3 HX of PCOS + Endometriosis (unknown) (no (unknown) (unknown) Stop: 08/27/22 (units (unknown) date) 15:59 unknown) (unknown) (no (unknown) (unknown) Stop: 08/27/22 (units (unknown) date) 16:06 unknown) (unknown) (no (unknown) (unknown) Stop: 08/27/22 (units (unknown) date) 16:17 unknown) (unknown) (no (unknown) (unknown) Stop: 08/27/22 (units (unknown) date) 16:45 unknown) (unknown) (no (unknown) (unknown) Stroke (units (unkno wn) date) unknown) (unknown) (no (unknown) (unknown) Substance Use (units ( unknown) date) Type: does not unknown) use (unknown) (no (unknown) (unknown) Surgical History (units (unknown) date) (Reviewed unknown) 01/07/21 @ 12:42 by Pieter Adorno MD) (unknown) (no (unknown) (unknown) Temperature 98.3 (units (unknown) date) F 08/27/22 13:28 unknown) (unknown) (no (unknown) (unknown) Temperature 98.3 (units (unknown) date) F unknown) (unknown) (no (unknown) (unknown) This is a (units (unkn own) date) 22-year-old unknown) female who presents to the emergency department (unknown) (no (unknown) (unknown) Thrombocytosis (units (unknown) date) unknown) (unknown) (no (unknown) (unknown) Time Seen by (units (u nknown) date) Provider: unknown) 08/27/22 15:57 (unknown) (no (unknown) (unknown) Total Bilirubin (units (unknown) date) (0.2-1.3) mg/dL unknown) (unknown) (no (unknown) (unknown) Total Bilirubin (units (unknown) date) 0.7 (0.2-1.3) unknown) mg/dL (unknown) (no (unknown) (unknown) Total Protein (units ( unknown) date) (6.3-8.2) g/dL unknown) (unknown) (no (unknown) (unknown) Total Protein (units ( unknown) date) 8.0 (6.3-8.2) unknown) g/dL (unknown) (no (unknown) (unknown) Trichomonas: (units (u nknown) date) None seen unknown) (unknown) (no (unknown) (unknown) US pelvic (units (unkn own) date) limited Stat unknown) (unknown) (no (unknown) (unknown) Ur Culture (units (unk nown) date) Indicated? Cult unknown) not indicated (unknown) (no (unknown) (unknown) Ur Culture (units (unk nown) date) Indicated? unknown) (unknown) (no (unknown) (unknown) Ur Squamous (units (un known) date) Epith Cells unknown) (0-5/HPF) (unknown) (no (unknown) (unknown) Ur Squamous (units (un known) date) Epith Cells 1-5 unknown) /hpf (0-5/HPF) (unknown) (no (unknown) (unknown) Urine Bacteria (units (unknown) date) (None) unknown) (unknown) (no (unknown) (unknown) Urine Bacteria (units (unknown) date) Few (2-10) H unknown) (None) (unknown) (no (unknown) (unknown) Urine Dip (units (unkn own) date) unknown) (unknown) (no (unknown) (unknown) Urine (units (unkno wn) date) Microscopic Stat unknown) (unknown) (no (unknown) (unknown) Urine (units (unknown) date) Test (Negative) unknown) (unknown) (no (unknown) (unknown) Urine (units (unknown) date) Test Negative unknown) (Negative) (unknown) (no (unknown) (unknown) Urine RBC (units (unkn own) date) (0-5/HPF) unknown) (unknown) (no (unknown) (unknown) Urine RBC None (units (unknown) date) seen (0-5/HPF) unknown) (unknown) (no (unknown) (unknown) Urine Specific (units (unknown) date) [place] 1.015 unknown) (unknown) (no (unknown) (unknown) Urine WBC (units (unkn own) date) (0-5/HPF) unknown) (unknown) (no (unknown) (unknown) Urine WBC (units (unkn own) date) 1-5/hpf (0-5/HPF) unknown) (unknown) (no (unknown) (unknown) Vital Signs - 8 (units (unknown) date) hr unknown) (unknown) (no (unknown) (unknown) Vital Signs (units (un known) date) unknown) (unknown) (no (unknown) (unknown) Vital signs: (units (u nknown) date) unknown) (unknown) (no (unknown) (unknown) WBC (4.5-11.0) (units (unknown) date) X103/uL unknown) (unknown) (no (unknown) (unknown) WBC 10.7 (units (unkno wn) date) (4.5-11.0) unknown) X103/uL (unknown) (no (unknown) (unknown) We will call you (units (unknown) date) if the G/C test unknown) comes back positive and I will add on another (unknown) (no (unknown) (unknown) Wet Prep Tric BV (units (unknown) date) Ariana Final unknown) 08/27/22 (unknown) (no (unknown) (unknown) Wet Prep Tric BV (units (unknown) date) Ariana Stat unknown) (unknown) (no (unknown) (unknown) White blood (units (un known) date) cells Occasional unknown) WBC seen (unknown) (no (unknown) (unknown) [place] teeth (units (u nknown) date) removed unknown) (-07/25/19) (unknown) (no (unknown) (unknown) Yeast: None seen (units (unknown) date) unknown) (unknown) (no (unknown) (unknown) [ ] New (units (unkno wn) date) medication unknown) written as a paper prescription (unknown) (no (unknown) (unknown) [ ] No new (units (unk nown) date) medications given unknown) (unknown) (no (unknown) (unknown) [ x] New (units (unkno wn) date) medication unknown) prescriptions sent to your pharmacy: [[facility] (unknown) (no (unknown) (unknown) [Embedded Image (units (unknown) date) Not Available] unknown) (unknown) (no (unknown) (unknown) alcohol intake (units (unknown) date) frequency: unknown) holidays/special occasions only (unknown) (no (unknown) (unknown) alcohol intake: (units (unknown) date) current unknown) (unknown) (no (unknown) (unknown) antibiotic to (units ( unknown) date) your prescription unknown) at [facility]. Please stay hydrated, take (unknown) (no (unknown) (unknown) any worsening of (units (unknown) date) your pain, feel unknown) faint, or have severe symptoms please come back (unknown) (no (unknown) (unknown) appointment. Let (units (unknown) date) them know you unknown) were seen in the Emergency Department and that we (unknown) (no (unknown) (unknown) asked that you (units (unknown) date) be seen for unknown) follow-up. We will electronically transmit a record (unknown) (no (unknown) (unknown) complaining of (units (unknown) date) pelvic pain for unknown) the last 3 days with abnormal vaginal discharge, (unknown) (no (unknown) (unknown) concerning (units (unk nown) date) symptoms, such as unknown) [fever greater than 101F, chills, worsening pain, (unknown) (no (unknown) (unknown) contrast results (units (unknown) date) from [facility] with a date of 08/15 showing moderate to (unknown) (no (unknown) (unknown) endorses white (units (unknown) date) abnormal vaginal unknown) discharge, denies flank pain, fever, chills, (unknown) (no (unknown) (unknown) establish care (units (unknown) date) with one of the unknown) [facility] primary care providers. (unknown) (no (unknown) (unknown) for clue cells (units (unknown) date) and WBC unknown) (unknown) (no (unknown) (unknown) gram/dose oral (units (unknown) date) powder (Miralax) unknown) grams (unknown) (no (unknown) (unknown) have infection, (units (unknown) date) I think this is unknown) most likely related to the vaginal infection. (unknown) (no (unknown) (unknown) history of PCOS (units (unknown) date) and unknown) endometriosis. She states it feels like a menstrual cramp, (unknown) (no (unknown) (unknown) household (units (unkn own) date) members: family unknown) (unknown) (no (unknown) (unknown) ibuprofen 600 mg (units (unknown) date) with Tylenol 650 unknown) mg every 6 hours for your pain. If you have (unknown) (no (unknown) (unknown) including (units (unkn own) date) bacterial unknown) vaginosis, STI, ovarian cyst, endometriosis, hydrosalpinx, (unknown) (no (unknown) (unknown) ketorolac 10 mg (units (unknown) date) tablet 10 mg PO unknown) Q8H PRN pain #14 tabs 08/27/22 (unknown) (no (unknown) (unknown) ketorolac 10 mg (units (unknown) date) tablet unknown) (unknown) (no (unknown) (unknown) marital status: (units (unknown) date) unknown unknown) (unknown) (no (unknown) (unknown) metronidazole (units ( unknown) date) 1.3 % (65 mg/5 unknown) gram) 1 appful vaginal BEDTIME 1 dose #5 08/27/22 (unknown) (no (unknown) (unknown) metronidazole (units ( unknown) date) 1.3 % (65 mg/5 unknown) gram) gel (unknown) (no (unknown) (unknown) metronidazole (units ( unknown) date) 500 mg tablet 500 unknown) mg PO BID 10 days #20 tabs 08/27/22 (unknown) (no (unknown) (unknown) metronidazole (units ( unknown) date) 500 mg tablet unknown) (unknown) (no (unknown) (unknown) occupational (units (u nknown) date) status: employed unknown) (unknown) (no (unknown) (unknown) of today's note (units (unknown) date) if your PCP is in unknown) our system (unknown) (no (unknown) (unknown) order you an (units (u nknown) date) ultrasound for unknown) evaluation as needed and follow-up with her for a (unknown) (no (unknown) (unknown) persistent (units (unk nown) date) vomiting or other unknown) bothersome symptoms]. (unknown) (no (unknown) (unknown) polyethylene (units (u nknown) date) glycol 3350 17 17 unknown) g PO DAILY for soft stool #119 08/27/22 (unknown) (no (unknown) (unknown) polyethylene (units (u nknown) date) glycol 3350 unknown) [Miralax] 17 gram/dose powder (unknown) (no (unknown) (unknown) , (units (unk nown) date) unknown) (unknown) (no (unknown) (unknown) records if (units (unk nown) date) available. unknown) (unknown) (no (unknown) (unknown) second hand (units (un known) date) exposure: Yes unknown) (unknown) (no (unknown) (unknown) severe right (units (u nknown) date) hydronephrosis unknown) recommend urologic referral. (unknown) (no (unknown) (unknown) soon. (units (unkno wn) date) unknown) (unknown) (no (unknown) (unknown) substance use (units ( unknown) date) type: does not unknown) use (unknown) (no (unknown) (unknown) test of cure. (units ( unknown) date) Thank you for unknown) your patients today, I hope that you feel better (unknown) (no (unknown) (unknown) then this is your (units (unknown) date) diagnosis and unknown) this is what we are empirically treating you for (unknown) (no (unknown) (unknown) to the emergency (units (unknown) date) department for an unknown) urgent ultrasound. Please see Joycelyn to (unknown) (no (unknown) (unknown) today. (units (unkno wn) date) unknown) (unknown) (no (unknown) (unknown) tramadol 50 mg (units (unknown) date) tablet 50 mg PO unknown) BID PRN pain #10 tabs 08/27/22 (unknown) (no (unknown) (unknown) tramadol 50 mg (units (unknown) date) tablet unknown) (unknown) (no (unknown) (unknown) vaginal gel (units (un known) date) grams unknown) (unknown) (no (unknown) (unknown) vomiting. (units (unkn own) date) unknown) Result panel 90 (unknown) (no date) (unknown) (unknown) NOT DETECTED (units ( unknown) unknown) Result panel 91 (unknown) (no (unknown) (unknown) (no value) (units (unk nown) date) unknown) (unknown) (no (unknown) (unknown) #: [id number] (units (un known) date) unknown) (unknown) (no (unknown) (unknown) *If you do not (units (unknown) date) have a primary unknown) care provider please contact [phone] to (unknown) (no (unknown) (unknown) *Please continue (units (unknown) date) to take your unknown) regular medications as directed. (unknown) (no (unknown) (unknown) *Please follow up (units (unknown) date) with your primary unknown) care provider in 2-3 days, call for an (unknown) (no (unknown) (unknown) *Return to (units (unk nown) date) Emergency unknown) Department if you should have any new, worsening, or (unknown) (no (unknown) (unknown) *What to do: (units (u nknown) date) unknown) (unknown) (no (unknown) (unknown) *You have been (units ( unknown) date) diagnosed with unknown) bacterial vaginosis, your urine does not appear to (unknown) (no (unknown) (unknown) 08/27/22 08/27/22 (units (unknown) date) 08/27/22 unknown) Range/Units (unknown) (no (unknown) (unknown) 08/27/22 13:25 (units (unknown) date) unknown) (unknown) (no (unknown) (unknown) 08/27/22 14:22 (units (unknown) date) unknown) (unknown) (no (unknown) (unknown) 08/27/22 15:58 (units (unknown) date) unknown) (unknown) (no (unknown) (unknown) 08/27/22 16:00 (units (unknown) date) unknown) (unknown) (no (unknown) (unknown) 08/27/22 16:15 (units (unknown) date) unknown) (unknown) (no (unknown) (unknown) 08/27/22 (units (unkno wn) date) Range/Units unknown) (unknown) (no (unknown) (unknown) 08/27/22 (units (unkno wn) date) unknown) (unknown) (no (unknown) (unknown) 1 appful vaginal (units (unknown) date) BEDTIME Qty: 5 0RF unknown) (unknown) (no (unknown) (unknown) 10 mg PO Q8H PRN (units (unknown) date) (Reason: pain) unknown) Qty: 14 0RF (unknown) (no (unknown) (unknown) [address] [place] [address], (units (unknown) date) [facility], unknown) [id number] (unknown) (no (unknown) (unknown) 13:25 13:25 13:25 (units (unknown) date) unknown) (unknown) (no (unknown) (unknown) 13:28 08/27/22 (units (unknown) date) unknown) (unknown) (no (unknown) (unknown) 14:22 14:22 16:15 (units (unknown) date) unknown) (unknown) (no (unknown) (unknown) 1614 (units (unkno wn) date) unknown) (unknown) (no (unknown) (unknown) 16:15 (units (unkno wn) date) unknown) (unknown) (no (unknown) (unknown) 17 g PO DAILY (units ( unknown) date) Qty: 119 0RF unknown) (unknown) (no (unknown) (unknown) 17:31 (units (unkno wn) date) unknown) (unknown) (no (unknown) (unknown) [id number] (units (unkno wn) date) unknown) (unknown) (no (unknown) (unknown) 50 mg PO BID PRN (units (unknown) date) (Reason: pain) unknown) Qty: 10 0RF (unknown) (no (unknown) (unknown) 500 mg PO BID 10 (units (unknown) date) Days Qty: 20 0RF unknown) (unknown) (no (unknown) (unknown) ALT (<35) IU/L (units (unknown) date) unknown) (unknown) (no (unknown) (unknown) ALT 20 (<35) IU/L (units (unknown) date) unknown) (unknown) (no (unknown) (unknown) 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 (units (unkno wn) date) unknown) (unknown) (no (unknown) (unknown) AST (14-36) IU/L (units (unknown) date) unknown) (unknown) (no (unknown) (unknown) AST 20 (14-36) (units (unknown) date) IU/L unknown) (unknown) (no (unknown) (unknown) (units (unknown) date) Unit#: [id number] unknown) : 2000Location : ED (unknown) (no (unknown) (unknown) [place] (-2015) (units (u nknown) date) unknown) (unknown) (no (unknown) (unknown) Activity (units (unkno wn) date) Restrictions/Addit unknown) ional Instructions: (unknown) (no (unknown) (unknown) Age/Sex: 22 / F (units (unknown) date) unknown) (unknown) (no (unknown) (unknown) Albumin (3.5-5.0) (units (unknown) date) g/dL unknown) (unknown) (no (unknown) (unknown) Albumin 4.4 (units (un known) date) (3.5-5.0) g/dL unknown) (unknown) (no (unknown) (unknown) Albumin/Globulin (units (unknown) date) Ratio (1.0-2.8) unknown) (unknown) (no (unknown) (unknown) Albumin/Globulin (units (unknown) date) Ratio 1.2 unknown) (1.0-2.8) (unknown) (no (unknown) (unknown) Alkaline (units (unkno wn) date) Phosphatase unknown) (38-126) U/L (unknown) (no (unknown) (unknown) Alkaline (units (unkno wn) date) Phosphatase 83 unknown) (38-126) U/L (unknown) (no (unknown) (unknown) Allergies (units (unkn own) date) unknown) (unknown) (no (unknown) (unknown) Allergy/AdvReac (units (unknown) date) Type Severity unknown) Reaction Status Date / Time (unknown) (no (unknown) (unknown) Anesthesia (units (unk nown) date) unknown) (unknown) (no (unknown) (unknown) Anxiety (-2020) (units (unknown) date) unknown) (unknown) (no (unknown) (unknown) BUN (7-17) mg/dL (units (unknown) date) unknown) (unknown) (no (unknown) (unknown) BUN 6 L (7-17) (units (unknown) date) mg/dL unknown) (unknown) (no (unknown) (unknown) BUN/Creatinine (units (unknown) date) Ratio (6-22) unknown) (unknown) (no (unknown) (unknown) BUN/Creatinine (units (unknown) date) Ratio 10.5 (6-22) unknown) (unknown) (no (unknown) (unknown) Bacterial (units (unkn own) date) vaginosis unknown) (unknown) (no (unknown) (unknown) Baso # (Auto) (units ( unknown) date) (0-100) /uL unknown) (unknown) (no (unknown) (unknown) Baso # (Auto) 100 (units (unknown) date) (0-100) /uL unknown) (unknown) (no (unknown) (unknown) Baso % (Auto) (units ( unknown) date) (0-2) % unknown) (unknown) (no (unknown) (unknown) Baso % (Auto) 0.8 (units (unknown) date) (0-2) % unknown) (unknown) (no (unknown) (unknown) Bedside Urine (units ( unknown) date) Bilirubin - unknown) Negative (unknown) (no (unknown) (unknown) Bedside Urine (units ( unknown) date) Glucose Negative unknown) (unknown) (no (unknown) (unknown) Bedside Urine (units ( unknown) date) Ketone - Negative unknown) (unknown) (no (unknown) (unknown) Bedside Urine (units ( unknown) date) Leukocytes - unknown) Negative (unknown) (no (unknown) (unknown) Bedside Urine (units ( unknown) date) Nitrite - Negative unknown) (unknown) (no (unknown) (unknown) Bedside Urine (units ( unknown) date) Occult Blood - unknown) Negative (unknown) (no (unknown) (unknown) Bedside Urine (units ( unknown) date) Protein - Negative unknown) (unknown) (no (unknown) (unknown) Bedside Urine (units ( unknown) date) Urobilinogen - unknown) Negative (unknown) (no (unknown) (unknown) Bedside Urine pH (units (unknown) date) 6.0 unknown) (unknown) (no (unknown) (unknown) Blood Pressure (units (unknown) date) 133/84 08/27/22 unknown) 13:28 (unknown) (no (unknown) (unknown) Blood Pressure (units (unknown) date) 133/84 unknown) (unknown) (no (unknown) (unknown) Brother Cerebral (units (unknown) date) palsy unknown) (unknown) (no (unknown) (unknown) C-Reactive (units (unk nown) date) Protein (<1.0) unknown) mg/dL (unknown) (no (unknown) (unknown) C-Reactive (units (unk nown) date) Protein 1.1 H unknown) (<1.0) mg/dL (unknown) (no (unknown) (unknown) CRP [C-Reactive (units (unknown) date) Protein Quant] unknown) Stat (unknown) (no (unknown) (unknown) Calcium (units (unkno wn) date) (8.4-10.2) mg/dL unknown) (unknown) (no (unknown) (unknown) Calcium 9.2 (units (un known) date) (8.4-10.2) mg/dL unknown) (unknown) (no (unknown) (unknown) Carbon Dioxide (units (unknown) date) (22-32) mmol/L unknown) (unknown) (no (unknown) (unknown) Carbon Dioxide 30 (units (unknown) date) (22-32) mmol/L unknown) (unknown) (no (unknown) (unknown) Cardiovascular: (units (unknown) date) regular rate and unknown) rhythm, no peripheral edema, warm extremities (unknown) (no (unknown) (unknown) Ceftriaxone (units (un known) date) Sodium unknown) (Ceftriaxone 1,000 Mg Vial) 500 mg IM NOW ONE (unknown) (no (unknown) (unknown) Chief Complaint: (units (unknown) date) Abdominal Pain unknown) (unknown) (no (unknown) (unknown) Chief Complaint: (units (unknown) date) Pelvic pain, unknown) abnormal vaginal discharge (unknown) (no (unknown) (unknown) Chlamydia (units (unkn own) date) Gonorrhea PCR unknown) -URINE Stat (unknown) (no (unknown) (unknown) Chloride (98-107) (units (unknown) date) mmol/L unknown) (unknown) (no (unknown) (unknown) Chloride 98 (units (un known) date) (98-107) mmol/L unknown) (unknown) (no (unknown) (unknown) Clinical (units (unkno wn) date) Impression: unknown) (unknown) (no (unknown) (unknown) Clinical decision (units (unknown) date) rules or scores unknown) evaluated: (unknown) (no (unknown) (unknown) Clue cells: (units (un known) date) Occasional unknown) (unknown) (no (unknown) (unknown) Complete Blood (units (unknown) date) Count AUTO DIFF unknown) Stat (unknown) (no (unknown) (unknown) Comprehensive (units ( unknown) date) Metabolic Panel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 (unknown) [place] % (Auto) 6.9 (units (unknown) date) (3-14) % unknown) (unknown) (no (unknown) (unknown) Mother (units (unkno wn) date) Hypertension unknown) (unknown) (no (unknown) (unknown) N gonorrhoeae DNA (units (unknown) date) (PCR) Not detected unknown) (unknown) (no (unknown) (unknown) N gonorrhoeae DNA (units (unknown) date) (PCR) unknown) (unknown) (no (unknown) (unknown) Name: (units (unkno wn) date) Charito Tleles unknown) Age/Sex: 22/F Attend Dr: (unknown) (no (unknown) (unknown) Narrative (units (unkn own) date) unknown) (unknown) (no (unknown) (unknown) Neuro: normal (units ( unknown) date) speech and unknown) cognition, A+O x3, ambulatory, clear speech (unknown) (no (unknown) (unknown) Neut # (Auto) (units ( unknown) date) (0761-3583) /uL unknown) (unknown) (no (unknown) (unknown) Neut # (Auto) (units ( unknown) date) 8000 H (9571-4901) unknown) /uL (unknown) (no (unknown) (unknown) Neut % (Auto) (units ( unknown) date) (50-75) % unknown) (unknown) (no (unknown) (unknown) Neut % (Auto) (units ( unknown) date) 74.6 (50-75) % unknown) (unknown) (no (unknown) (unknown) New (units (unkno wn) date) unknown) (unknown) (no (unknown) (unknown) No Known Drug (units ( unknown) date) Allergies Allergy unknown) Verified 07/25/21 14:01 (unknown) (no (unknown) (unknown) No active medical (units (unknown) date) problems unknown) (unknown) (no (unknown) (unknown) ONE (units (unkno wn) date) unknown) (unknown) (no (unknown) (unknown) ORDERED: Wet Prep (units (unknown) date) unknown) (unknown) (no (unknown) (unknown) Ondansetron HCl (units (unknown) date) (Ondansetron 4 Mg unknown) Odt) 4 mg SL NOW ONE (unknown) (no (unknown) (unknown) Ordered pain (units (u nknown) date) medication, unknown) pending lab work and symptom control (unknown) (no (unknown) (unknown) Ordered: (units (unkno wn) date) unknown) (unknown) (no (unknown) (unknown) Orders (units (unkno wn) date) unknown) (unknown) (no (unknown) (unknown) Oxygen Delivery (units (unknown) date) Method 08/27/22 unknown) 13:28 (unknown) (no (unknown) (unknown) Oxygen Delivery (units (unknown) date) Method Room Air unknown) Room Air (unknown) (no (unknown) (unknown) PAGE 1 (units (unkno wn) date) unknown) (unknown) (no (unknown) (unknown) Patient (units (unkno wn) date) Disposition: Home unknown) (unknown) (no (unknown) (unknown) Patient History (units (unknown) date) unknown) (unknown) (no (unknown) (unknown) Patient is (units (unk nown) date) appropriate for unknown) outpatient management. (unknown) (no (unknown) (unknown) Patient's (units (unkn own) date) symptoms improved unknown) over duration of stay with above-stated therapies. (unknown) (no (unknown) (unknown) Patient: (units (unkno wn) date) Charito Telles unknown) MR#: [id number] (unknown) (no (unknown) (unknown) Plantar warts (units ( unknown) date) (-2017) unknown) (unknown) (no (unknown) (unknown) Plt Count (units (unkn own) date) (150-400) X103/uL unknown) (unknown) (no (unknown) (unknown) Plt Count 476 H (units (unknown) date) (150-400) X103/uL unknown) (unknown) (no (unknown) (unknown) Point of care (units ( unknown) date) testing: unknown) (unknown) (no (unknown) (unknown) Potassium (units (unkn own) date) (3.4-5.1) mmol/L unknown) (unknown) (no (unknown) (unknown) Potassium 3.2 L (units (unknown) date) (3.4-5.1) mmol/L unknown) (unknown) (no (unknown) (unknown) Test (units (unknown) date) Urine Stat unknown) (unknown) (no (unknown) (unknown) Prescriptions: (units (unknown) date) unknown) (unknown) (no (unknown) (unknown) Previous Rx's (units ( unknown) date) unknown) (unknown) (no (unknown) (unknown) Procedure Result (units (unknown) date) Verified unknown) (unknown) (no (unknown) (unknown) Psych: mental (units ( unknown) date) status is grossly unknown) normal, congruent mood, normal affect, pleasant (unknown) (no (unknown) (unknown) Pulse Oximetry (units (unknown) date) 100 08/27/22 13:28 unknown) (unknown) (no (unknown) (unknown) Pulse Oximetry (units (unknown) date) 100 99 unknown) (unknown) (no (unknown) (unknown) Pulse Rate 75 (units ( unknown) date) 08/27/22 13:28 unknown) (unknown) (no (unknown) (unknown) Pulse Rate 75 80 (units (unknown) date) unknown) (unknown) (no (unknown) (unknown) Questions are (units ( unknown) date) addressed and unknown) there is agreement with the plan and for follow-up. (unknown) (no (unknown) (unknown) RBC (4.0-5.2) (units ( unknown) date) X106/uL unknown) (unknown) (no (unknown) (unknown) RBC 4.49 (units (unkno wn) date) (4.0-5.2) X106/uL unknown) (unknown) (no (unknown) (unknown) RDW (11.6-14.8) % (units (unknown) date) unknown) (unknown) (no (unknown) (unknown) RDW 14.1 (units (unkno wn) date) (11.6-14.8) % unknown) (unknown) (no (unknown) (unknown) ROS Unobtainable: (units (unknown) date) All systems unknown) reviewed + are unremarkable except as noted in HPI (unknown) (no (unknown) (unknown) RUN DATE: (units (unkn own) date) 08/27/22 Specimen unknown) Inquiry (unknown) (no (unknown) (unknown) RUN TIME: 1636 (units (unknown) date) unknown) (unknown) (no (unknown) (unknown) Referrals: (units (unk nown) date) unknown) (unknown) (no (unknown) (unknown) Re08/27/22 (units ( unknown) date) Disch: Status: REG unknown) ER (unknown) (no (unknown) (unknown) Related Data (units (u nknown) date) unknown) (unknown) (no (unknown) (unknown) Respiratory Rate (units (unknown) date) 18 08/27/22 13:28 unknown) (unknown) (no (unknown) (unknown) Respiratory Rate (units (unknown) date) 18 18 unknown) (unknown) (no (unknown) (unknown) Respiratory: (units (u nknown) date) normal effort, unknown) able to speak in complete sentences, without (unknown) (no (unknown) (unknown) Review of Systems (units (unknown) date) unknown) (unknown) (no (unknown) (unknown) Reviewed vitals (units (unknown) date) signs and nursing unknown) notes. (unknown) (no (unknown) (unknown) SOURCE: Vaginal (units (unknown) date) ENTR: unknown) 08/27/22-[address]: Joycelyn Diego P.A-C (unknown) (no (unknown) (unknown) SPDESC: RECD: (units ( unknown) date) 08/27/22-1608 SUBM unknown) DR: Lynn Ortega (unknown) (no (unknown) (unknown) SPEC #: (units (unkno wn) date) [id number] ANGELIA: unknown) 08/27/22-1599 STATUS: COMP REQ (unknown) (no (unknown) (unknown) Shared decision (units (unknown) date) making: With the unknown) patient and she opts to follow up with her (unknown) (no (unknown) (unknown) Signed By: (units (unk nown) date) unknown) (unknown) (no (unknown) (unknown) Site (units (unkno wn) date) unknown) (unknown) (no (unknown) (unknown) Skin: brisk (units (un known) date) capillary refill, unknown) without pallor or erythema (unknown) (no (unknown) (unknown) Smoking Status: (units (unknown) date) Never smoker unknown) (unknown) (no (unknown) (unknown) Social History (units (unknown) date) (Reviewed 01/07/21 unknown) @ 12:42 by Pieter Adorno MD) (unknown) (no (unknown) (unknown) Social (units (unkno wn) date) considerations unknown) that may affect disposition: (unknown) (no (unknown) (unknown) Sodium (137-145) (units (unknown) date) mmol/L unknown) (unknown) (no (unknown) (unknown) Sodium 140 (units (unk nown) date) (137-145) mmol/L unknown) (unknown) (no (unknown) (unknown) Source: patient (units (unknown) date) unknown) (unknown) (no (unknown) (unknown) Stand Alone (units (un known) date) Forms: Patient unknown) Portal/API, Work Release Note (unknown) (no (unknown) (unknown) Stated Complaint: (units (unknown) date) pelvic pain T-3 HX unknown) of PCOS + Endometriosis (unknown) (no (unknown) (unknown) Stop: 08/27/22 (units (unknown) date) 15:59 unknown) (unknown) (no (unknown) (unknown) Stop: 08/27/22 (units (unknown) date) 16:06 unknown) (unknown) (no (unknown) (unknown) Stop: 08/27/22 (units (unknown) date) 16:17 unknown) (unknown) (no (unknown) (unknown) Stop: 08/27/22 (units (unknown) date) 16:45 unknown) (unknown) (no (unknown) (unknown) Stroke (units (unkno wn) date) unknown) (unknown) (no (unknown) (unknown) Substance Use (units ( unknown) date) Type: does not use unknown) (unknown) (no (unknown) (unknown) Surgical History (units (unknown) date) (Reviewed 01/07/21 unknown) @ 12:42 by Pieter Adorno MD) (unknown) (no (unknown) (unknown) Temperature 98.3 (units (unknown) date) F 08/27/22 13:28 unknown) (unknown) (no (unknown) (unknown) Temperature 98.3 (units (unknown) date) F unknown) (unknown) (no (unknown) (unknown) This is a (units (unkn own) date) 22-year-old female unknown) who presents to the emergency department (unknown) (no (unknown) (unknown) Thrombocytosis (units (unknown) date) unknown) (unknown) (no (unknown) (unknown) Time Seen by (units (u nknown) date) Provider: 08/27/22 unknown) 15:57 (unknown) (no (unknown) (unknown) Total Bilirubin (units (unknown) date) (0.2-1.3) mg/dL unknown) (unknown) (no (unknown) (unknown) Total Bilirubin (units (unknown) date) 0.7 (0.2-1.3) unknown) mg/dL (unknown) (no (unknown) (unknown) Total Protein (units ( unknown) date) (6.3-8.2) g/dL unknown) (unknown) (no (unknown) (unknown) Total Protein 8.0 (units (unknown) date) (6.3-8.2) g/dL unknown) (unknown) (no (unknown) (unknown) Trichomonas: None (units (unknown) date) seen unknown) (unknown) (no (unknown) (unknown) US pelvic limited (units (unknown) date) Stat unknown) (unknown) (no (unknown) (unknown) Ur Chlamydia DNA (units (unknown) date) (PCR) Not detected unknown) (unknown) (no (unknown) (unknown) Ur Chlamydia DNA (units (unknown) date) (PCR) unknown) (unknown) (no (unknown) (unknown) Ur Culture (units (unk nown) date) Indicated? Cult unknown) not indicated (unknown) (no (unknown) (unknown) Ur Culture (units (unk nown) date) Indicated? unknown) (unknown) (no (unknown) (unknown) Ur Squamous Epith (units (unknown) date) Cells (0-5/HPF) unknown) (unknown) (no (unknown) (unknown) Ur Squamous Epith (units (unknown) date) Cells 1-5 /hpf unknown) (0-5/HPF) (unknown) (no (unknown) (unknown) Urine Bacteria (units (unknown) date) (None) unknown) (unknown) (no (unknown) (unknown) Urine Bacteria (units (unknown) date) Few (2-10) H unknown) (None) (unknown) (no (unknown) (unknown) Urine Dip (units (unkn own) date) unknown) (unknown) (no (unknown) (unknown) Urine Microscopic (units (unknown) date) Stat unknown) (unknown) (no (unknown) (unknown) Urine (units (unknown) date) Test (Negative) unknown) (unknown) (no (unknown) (unknown) Urine (units (unknown) date) Test Negative unknown) (Negative) (unknown) (no (unknown) (unknown) Urine RBC (units (unkn own) date) (0-5/HPF) unknown) (unknown) (no (unknown) (unknown) Urine RBC None (units (unknown) date) seen (0-5/HPF) unknown) (unknown) (no (unknown) (unknown) Urine Specific (units (unknown) date) [place] 1.015 unknown) (unknown) (no (unknown) (unknown) Urine WBC (units (unkn own) date) (0-5/HPF) unknown) (unknown) (no (unknown) (unknown) Urine WBC 1-5/hpf (units (unknown) date) (0-5/HPF) unknown) (unknown) (no (unknown) (unknown) Vital Signs - 8 (units (unknown) date) hr unknown) (unknown) (no (unknown) (unknown) Vital Signs (units (un known) date) unknown) (unknown) (no (unknown) (unknown) Vital signs: (units (u nknown) date) unknown) (unknown) (no (unknown) (unknown) WBC (4.5-11.0) (units (unknown) date) X103/uL unknown) (unknown) (no (unknown) (unknown) WBC 10.7 (units (unkno wn) date) (4.5-11.0) X103/uL unknown) (unknown) (no (unknown) (unknown) We will call you (units (unknown) date) if the G/C test unknown) comes back positive and I will add on another (unknown) (no (unknown) (unknown) Wet Prep Tric BV (units (unknown) date) Ariana Final unknown) 08/27/22 (unknown) (no (unknown) (unknown) Wet Prep Tric BV (units (unknown) date) Ariana Stat unknown) (unknown) (no (unknown) (unknown) White blood cells (units (unknown) date) Occasional WBC unknown) seen (unknown) (no (unknown) (unknown) [place] teeth (units (u nknown) date) removed unknown) (-07/25/19) (unknown) (no (unknown) (unknown) Yeast: None seen (units (unknown) date) unknown) (unknown) (no (unknown) (unknown) [ ] New (units (unkno wn) date) medication written unknown) as a paper prescription (unknown) (no (unknown) (unknown) [ ] No new (units (unk nown) date) medications given unknown) (unknown) (no (unknown) (unknown) [ x] New (units (unkno wn) date) medication unknown) prescriptions sent to your pharmacy: [[facility] (unknown) (no (unknown) (unknown) [Embedded Image (units (unknown) date) Not Available] unknown) (unknown) (no (unknown) (unknown) alcohol intake (units (unknown) date) frequency: unknown) holidays/special occasions only (unknown) (no (unknown) (unknown) alcohol intake: (units (unknown) date) current unknown) (unknown) (no (unknown) (unknown) and below (units (unkn own) date) unknown) (unknown) (no (unknown) (unknown) and cooperative (units (unknown) date) unknown) (unknown) (no (unknown) (unknown) antibiotic to (units ( unknown) date) your prescription unknown) at [facility]. Please stay hydrated, take (unknown) (no (unknown) (unknown) any worsening of (units (unknown) date) your pain, feel unknown) faint, or have severe symptoms please come back (unknown) (no (unknown) (unknown) appointment. Let (units (unknown) date) them know you were unknown) seen in the Emergency Department and that we (unknown) (no (unknown) (unknown) asked that you be (units (unknown) date) seen for unknown) follow-up. We will electronically transmit a record (unknown) (no (unknown) (unknown) bacteria and (units (u nknown) date) culture was not unknown) indicated, I think this is likely contaminant from (unknown) (no (unknown) (unknown) ceftriaxone. She (units (unknown) date) was under the unknown) weight threshold for 1 g IM. I did not treat (unknown) (no (unknown) (unknown) complaining of (units (unknown) date) pelvic pain for unknown) the last 3 days with abnormal vaginal discharge, (unknown) (no (unknown) (unknown) concerning (units (unk nown) date) symptoms, such as unknown) [fever greater than 101F, chills, worsening pain, (unknown) (no (unknown) (unknown) denies any other (units (unknown) date) symptoms other unknown) than nausea, has not had vomiting or diarrhea. (unknown) (no (unknown) (unknown) empiric treatment (units (unknown) date) prior to this unknown) result coming back so I gave her 500 mg of IM (unknown) (no (unknown) (unknown) endorses white (units (unknown) date) abnormal vaginal unknown) discharge, denies flank pain, fever, chills, (unknown) (no (unknown) (unknown) establish care (units (unknown) date) with one of the unknown) [facility] primary care providers. (unknown) (no (unknown) (unknown) exam. (units (unkno wn) date) unknown) (unknown) (no (unknown) (unknown) for clue cells (units (unknown) date) and WBC unknown) (unknown) (no (unknown) (unknown) gram/dose oral (units (unknown) date) powder (Miralax) unknown) grams (unknown) (no (unknown) (unknown) had tenderness (units (unknown) date) over this area. unknown) She is tearful about the pain and I discussed (unknown) (no (unknown) (unknown) have infection, I (units (unknown) date) think this is most unknown) likely related to the vaginal infection. (unknown) (no (unknown) (unknown) her for acute (units ( unknown) date) cystitis however unknown) treated her for bacterial vaginosis, her (unknown) (no (unknown) (unknown) history of PCOS (units (unknown) date) and endometriosis. unknown) She states it feels like a menstrual cramp, (unknown) (no (unknown) (unknown) household (units (unkn own) date) members: family unknown) (unknown) (no (unknown) (unknown) ibuprofen 600 mg (units (unknown) date) with Tylenol 650 unknown) mg every 6 hours for your pain. If you have (unknown) (no (unknown) (unknown) includes pelvic (units (unknown) date) inflammatory unknown) disease secondary to infection, hydrosalpinx and (unknown) (no (unknown) (unknown) including (units (unkn own) date) bacterial unknown) vaginosis, STI, ovarian cyst, endometriosis, hydrosalpinx, (unknown) (no (unknown) (unknown) is nondistended, (units (unknown) date) without masses, unknown) rebound tenderness or exquisite tenderness with (unknown) (no (unknown) (unknown) it if her (units (unkn own) date) symptoms persist unknown) to have this completed. I discussed with her her (unknown) (no (unknown) (unknown) ketorolac 10 mg (units (unknown) date) tablet 10 mg PO unknown) Q8H PRN pain #14 tabs 08/27/22 (unknown) (no (unknown) (unknown) ketorolac 10 mg (units (unknown) date) tablet unknown) (unknown) (no (unknown) (unknown) marital status: (units (unknown) date) unknown unknown) (unknown) (no (unknown) (unknown) metronidazole 1.3 (units (unknown) date) % (65 mg/5 gram) 1 unknown) appful vaginal BEDTIME 1 dose #5 08/27/22 (unknown) (no (unknown) (unknown) metronidazole 1.3 (units (unknown) date) % (65 mg/5 gram) unknown) gel (unknown) (no (unknown) (unknown) metronidazole 500 (units (unknown) date) mg tablet 500 mg unknown) PO BID 10 days #20 tabs 08/27/22 (unknown) (no (unknown) (unknown) metronidazole 500 (units (unknown) date) mg tablet unknown) (unknown) (no (unknown) (unknown) nontender over (units (unknown) date) right and left unknown) ovaries, without flank pain bilaterally, abdomen (unknown) (no (unknown) (unknown) occupational (units (u nknown) date) status: employed unknown) (unknown) (no (unknown) (unknown) of today's note (units (unknown) date) if your PCP is in unknown) our system (unknown) (no (unknown) (unknown) order you an (units (u nknown) date) ultrasound for unknown) evaluation as needed and follow-up with her for a (unknown) (no (unknown) (unknown) ovaries I feel (units (unknown) date) that this might unknown) not be tolerable for her today. My differential (unknown) (no (unknown) (unknown) persistent (units (unk nown) date) vomiting or other unknown) bothersome symptoms]. (unknown) (no (unknown) (unknown) personal events (units (unknown) date) going on with her unknown) family. She has not been able to in for care (unknown) (no (unknown) (unknown) pharmacy, follow (units (unknown) date) up with her unknown) primary care provider. (unknown) (no (unknown) (unknown) polyethylene (units (u nknown) date) glycol 3350 17 17 unknown) g PO DAILY for soft stool #119 08/27/22 (unknown) (no (unknown) (unknown) polyethylene (units (u nknown) date) glycol 3350 unknown) [Miralax] 17 gram/dose powder (unknown) (no (unknown) (unknown) potassium (units (unkn own) date) chloride 20 mEq 20 unknown) meq PO BID #4 tabs 08/27/22 (unknown) (no (unknown) (unknown) potassium (units (unkn own) date) chloride 20 mEq unknown) tablet,ER particles/crystals (unknown) (no (unknown) (unknown) was (units ( unknown) date) negative. unknown) (unknown) (no (unknown) (unknown) , (units (unk nown) date) unknown) (unknown) (no (unknown) (unknown) primary care (units (u nknown) date) provider for test unknown) of cure ultrasound imaging if needed. She knows (unknown) (no (unknown) (unknown) reassuring, (units (un known) date) hypokalemia with a unknown) potassium of 3.2, prescribed oral potassium x6 (unknown) (no (unknown) (unknown) records if (units (unk nown) date) available. 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 (units (unkno wn) date) unknown) (unknown) (no (unknown) (unknown) substance use (units ( unknown) date) type: does not use unknown) (unknown) (no (unknown) (unknown) tablet,extended (units (unknown) date) release(part/cryst unknown) ) (unknown) (no (unknown) (unknown) tabs for (units (unkno wn) date) treatment this unknown) with food and water. No lactic acidosis, UA shows few (unknown) (no (unknown) (unknown) test of cure. (units ( unknown) date) Thank you for your unknown) patients today, I hope that you feel better (unknown) (no (unknown) (unknown) then this is your (units (unknown) date) diagnosis and this unknown) is what we are empirically treating you for (unknown) (no (unknown) (unknown) this was (units (unkno wn) date) discussed with the unknown) patient. All of her lab work came back otherwise (unknown) (no (unknown) (unknown) to the emergency (units (unknown) date) department for an unknown) urgent ultrasound. Please see Joycelyn to (unknown) (no (unknown) (unknown) today. (units (unkno wn) date) unknown) (unknown) (no (unknown) (unknown) tramadol 50 mg (units (unknown) date) tablet 50 mg PO unknown) BID PRN pain #10 tabs 08/27/22 (unknown) (no (unknown) (unknown) tramadol 50 mg (units (unknown) date) tablet unknown) (unknown) (no (unknown) (unknown) ultrasound but (units (unknown) date) patient's wet came unknown) back positive for bacterial vaginosis and she (unknown) (no (unknown) (unknown) vaginal (units (unkno wn) date) discharge. Urine unknown) gonorrhea and chlamydia is negative, patient opted for (unknown) (no (unknown) (unknown) vaginal gel grams (units (unknown) date) unknown) (unknown) (no (unknown) (unknown) vomiting. She (units ( unknown) date) denies severe unknown) symptoms, states that she has some stressful (unknown) (no (unknown) (unknown) wheezing, (units (unkn own) date) stridor, or unknown) abnormal breath sounds. No retractions or tachypnea. (unknown) (no (unknown) (unknown) with her that this (units (unknown) date) is most likely unknown) infection and since she was nontender over her (unknown) (no (unknown) (unknown) yet. States that (units (unknown) date) she has had unknown) unprotected intercourse with a partner. She Result panel 93 (unknown) (no (unknown) (unknown) (no value) (units (unk nown) date) unknown) (unknown) (no (unknown) (unknown) #: [id number] (units (un known) date) unknown) (unknown) (no (unknown) (unknown) <Gee Cadet (units (unknown) date) - Last Filed: unknown) 09/11/22 07:32> (unknown) (no (unknown) (unknown) <Electronically (units (unknown) date) signed by Gee unknown) MD Helio> (unknown) (no (unknown) (unknown) <Electronically (units (unknown) date) signed by Lynn thomson) Bina Ortega> (unknown) (no (unknown) (unknown) <Lynn Ortega, (units (unknown) date) ROSS - Last Filed: unknown) 08/27/22 18:05> (unknown) (no (unknown) (unknown) *If you do not (units (unknown) date) have a primary unknown) care provider please contact [phone] to (unknown) (no (unknown) (unknown) *Please continue (units (unknown) date) to take your unknown) regular medications as directed. (unknown) (no (unknown) (unknown) *Please follow up (units (unknown) date) with your primary unknown) care provider in 2-3 days, call for an (unknown) (no (unknown) (unknown) *Return to (units (unk nown) date) Emergency unknown) Department if you should have any new, worsening, or (unknown) (no (unknown) (unknown) *What to do: (units (u nknown) date) unknown) (unknown) (no (unknown) (unknown) *You have been (units ( unknown) date) diagnosed with unknown) bacterial vaginosis, your urine does not appear to (unknown) (no (unknown) (unknown) 08/27/22 08/27/22 (units (unknown) date) 08/27/22 unknown) Range/Units (unknown) (no (unknown) (unknown) 08/27/22 14:22 (units (unknown) date) unknown) (unknown) (no (unknown) (unknown) 08/27/22 1805 (units ( unknown) date) unknown) (unknown) (no (unknown) (unknown) 08/27/22 (units (unkno wn) date) Range/Units unknown) (unknown) (no (unknown) (unknown) 08/27/22 (units (unkno wn) date) unknown) (unknown) (no (unknown) (unknown) 09/11/22 0732 (units ( unknown) date) unknown) (unknown) (no (unknown) (unknown) 1 appful vaginal (units (unknown) date) BEDTIME Qty: 5 0RF unknown) (unknown) (no (unknown) (unknown) 10 mg PO Q8H PRN (units (unknown) date) (Reason: pain) unknown) Qty: 14 0RF (unknown) (no (unknown) (unknown) [address] [place] [address], (units (unknown) date) [facility], unknown) [id number] (unknown) (no (unknown) (unknown) 13:25 13:25 13:25 (units (unknown) date) unknown) (unknown) (no (unknown) (unknown) 13:28 08/27/22 (units (unknown) date) unknown) (unknown) (no (unknown) (unknown) 14:22 14:22 16:15 (units (unknown) date) unknown) (unknown) (no (unknown) (unknown) 1614 (units (unkno wn) date) unknown) (unknown) (no (unknown) (unknown) 16:15 (units (unkno wn) date) unknown) (unknown) (no (unknown) (unknown) 17 g PO DAILY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 date) F 08/27/22 13:28 unknown) (unknown) (no (unknown) (unknown) Temperature 98.3 (units (unknown) date) F unknown) (unknown) (no (unknown) (unknown) This is a (units (unkn own) date) 22-year-old female unknown) who presents to the emergency department (unknown) (no (unknown) (unknown) Thrombocytosis (units (unknown) date) unknown) (unknown) (no (unknown) (unknown) Time Seen by (units (u nknown) date) Provider: 08/27/22 unknown) 15:57 (unknown) (no (unknown) (unknown) Total Bilirubin (units (unknown) date) (0.2-1.3) mg/dL unknown) (unknown) (no (unknown) (unknown) Total Bilirubin (units (unknown) date) 0.7 (0.2-1.3) unknown) mg/dL (unknown) (no (unknown) (unknown) Total Protein (units ( unknown) date) (6.3-8.2) g/dL unknown) (unknown) (no (unknown) (unknown) Total Protein 8.0 (units (unknown) date) (6.3-8.2) g/dL unknown) (unknown) (no (unknown) (unknown) Trichomonas: None (units (unknown) date) seen unknown) (unknown) (no (unknown) (unknown) Ur Chlamydia DNA (units (unknown) date) (PCR) Not detected unknown) (unknown) (no (unknown) (unknown) Ur Chlamydia DNA (units (unknown) date) (PCR) unknown) (unknown) (no (unknown) (unknown) Ur Culture (units (unk nown) date) Indicated? Cult unknown) not indicated (unknown) (no (unknown) (unknown) Ur Culture (units (unk nown) date) Indicated? unknown) (unknown) (no (unknown) (unknown) Ur Squamous Epith (units (unknown) date) Cells (0-5/HPF) unknown) (unknown) (no (unknown) (unknown) Ur Squamous Epith (units (unknown) date) Cells 1-5 /hpf unknown) (0-5/HPF) (unknown) (no (unknown) (unknown) Urine Bacteria (units (unknown) date) (None) unknown) (unknown) (no (unknown) (unknown) Urine Bacteria (units (unknown) date) Few (2-10) H unknown) (None) (unknown) (no (unknown) (unknown) Urine Dip (units (unkn own) date) unknown) (unknown) (no (unknown) (unknown) Urine (units (unknown) date) Test (Negative) unknown) (unknown) (no (unknown) (unknown) Urine (units (unknown) date) Test Negative unknown) (Negative) (unknown) (no (unknown) (unknown) Urine RBC (units (unkn own) date) (0-5/HPF) unknown) (unknown) (no (unknown) (unknown) Urine RBC None (units (unknown) date) seen (0-5/HPF) unknown) (unknown) (no (unknown) (unknown) Urine Specific (units (unknown) date) [place] 1.015 unknown) (unknown) (no (unknown) (unknown) Urine WBC (units (unkn own) date) (0-5/HPF) unknown) (unknown) (no (unknown) (unknown) Urine WBC 1-5/hpf (units (unknown) date) (0-5/HPF) unknown) (unknown) (no (unknown) (unknown) Vital Signs - 8 (units (unknown) date) hr unknown) (unknown) (no (unknown) (unknown) Vital Signs (units (un known) date) unknown) (unknown) (no (unknown) (unknown) Vital signs: (units (u nknown) date) unknown) (unknown) (no (unknown) (unknown) WBC (4.5-11.0) (units (unknown) date) X103/uL unknown) (unknown) (no (unknown) (unknown) WBC 10.7 (units (unkno wn) date) (4.5-11.0) X103/uL unknown) (unknown) (no (unknown) (unknown) We will call you (units (unknown) date) if the G/C test unknown) comes back positive and I will add on another (unknown) (no (unknown) (unknown) Wet Prep Tric BV (units (unknown) date) Ariana Final unknown) 08/27/22 (unknown) (no (unknown) (unknown) White blood cells (units (unknown) date) Occasional WBC unknown) seen (unknown) (no (unknown) (unknown) [place] teeth (units (u nknown) date) removed unknown) (-07/25/19) (unknown) (no (unknown) (unknown) Yeast: None seen (units (unknown) date) unknown) (unknown) (no (unknown) (unknown) [ ] New (units (unkno wn) date) medication written unknown) as a paper prescription (unknown) (no (unknown) (unknown) [ ] No new (units (unk nown) date) medications given unknown) (unknown) (no (unknown) (unknown) [ x] New (units (unkno wn) date) medication unknown) prescriptions sent to your pharmacy: [[facility] (unknown) (no (unknown) (unknown) [Embedded Image (units (unknown) date) Not Available] unknown) (unknown) (no (unknown) (unknown) alcohol intake (units (unknown) date) frequency: unknown) holidays/special occasions only (unknown) (no (unknown) (unknown) alcohol intake: (units (unknown) date) current unknown) (unknown) (no (unknown) (unknown) and below (units (unkn own) date) unknown) (unknown) (no (unknown) (unknown) and cooperative (units (unknown) date) unknown) (unknown) (no (unknown) (unknown) antibiotic to (units ( unknown) date) your prescription unknown) at [facility]. Please stay hydrated, take (unknown) (no (unknown) (unknown) any worsening of (units (unknown) date) your pain, feel unknown) faint, or have severe symptoms please come back (unknown) (no (unknown) (unknown) appointment. Let (units (unknown) date) them know you were unknown) seen in the Emergency Department and that we (unknown) (no (unknown) (unknown) asked that you be (units (unknown) date) seen for unknown) follow-up. We will electronically transmit a record (unknown) (no (unknown) (unknown) bacteria and (units (u nknown) date) culture was not unknown) indicated, I think this is likely contaminant from (unknown) (no (unknown) (unknown) ceftriaxone. She (units (unknown) date) was under the unknown) weight threshold for 1 g IM. I did not treat (unknown) (no (unknown) (unknown) complaining of (units (unknown) date) pelvic pain for unknown) the last 3 days with abnormal vaginal discharge, (unknown) (no (unknown) (unknown) concerning (units (unk nown) date) symptoms, such as unknown) [fever greater than 101F, chills, worsening pain, (unknown) (no (unknown) (unknown) denies any other (units (unknown) date) symptoms other unknown) than nausea, has not had vomiting or diarrhea. (unknown) (no (unknown) (unknown) documentation has (units (unknown) date) been reviewed and unknown) I agree with assessment and plan. (unknown) (no (unknown) (unknown) empiric treatment (units (unknown) date) prior to this unknown) result coming back so I gave her 500 mg of IM (unknown) (no (unknown) (unknown) endorses white (units (unknown) date) abnormal vaginal unknown) discharge, denies flank pain, fever, chills, (unknown) (no (unknown) (unknown) establish care (units (unknown) date) with one of the unknown) [facility] primary care providers. (unknown) (no (unknown) (unknown) exam. (units (unkno wn) date) unknown) (unknown) (no (unknown) (unknown) for clue cells (units (unknown) date) and WBC unknown) (unknown) (no (unknown) (unknown) gram/dose oral (units (unknown) date) powder (Miralax) unknown) grams (unknown) (no (unknown) (unknown) had tenderness (units (unknown) date) over this area. unknown) She is tearful about the pain and I discussed (unknown) (no (unknown) (unknown) have infection, I (units (unknown) date) think this is most unknown) likely related to the vaginal infection. (unknown) (no (unknown) (unknown) her for acute (units ( unknown) date) cystitis however unknown) treated her for bacterial vaginosis, her (unknown) (no (unknown) (unknown) history of PCOS (units (unknown) date) and endometriosis. unknown) She states it feels like a menstrual cramp, (unknown) (no (unknown) (unknown) household (units (unkn own) date) members: family unknown) (unknown) (no (unknown) (unknown) ibuprofen 600 mg (units (unknown) date) with Tylenol 650 unknown) mg every 6 hours for your pain. If you have (unknown) (no (unknown) (unknown) includes pelvic (units (unknown) date) inflammatory unknown) disease secondary to infection, hydrosalpinx and (unknown) (no (unknown) (unknown) including (units (unkn own) date) bacterial unknown) vaginosis, STI, ovarian cyst, endometriosis, hydrosalpinx, (unknown) (no (unknown) (unknown) is nondistended, (units (unknown) date) without masses, unknown) rebound tenderness or exquisite tenderness with (unknown) (no (unknown) (unknown) it if her (units (unkn own) date) symptoms persist unknown) to have this completed. I discussed with her her (unknown) (no (unknown) (unknown) ketorolac 10 mg (units (unknown) date) tablet 10 mg PO unknown) Q8H PRN pain #14 tabs 08/27/22 (unknown) (no (unknown) (unknown) ketorolac 10 mg (units (unknown) date) tablet unknown) (unknown) (no (unknown) (unknown) marital status: (units (unknown) date) unknown unknown) (unknown) (no (unknown) (unknown) metronidazole 1.3 (units (unknown) date) % (65 mg/5 gram) 1 unknown) appful vaginal BEDTIME 1 dose #5 08/27/22 (unknown) (no (unknown) (unknown) metronidazole 1.3 (units (unknown) date) % (65 mg/5 gram) unknown) gel (unknown) (no (unknown) (unknown) nontender over (units (unknown) date) right and left unknown) ovaries, without flank pain bilaterally, abdomen (unknown) (no (unknown) (unknown) occupational (units (u nknown) date) status: employed unknown) (unknown) (no (unknown) (unknown) of today's note (units (unknown) date) if your PCP is in unknown) our system (unknown) (no (unknown) (unknown) order you an (units (u nknown) date) ultrasound for unknown) evaluation as needed and follow-up with her for a (unknown) (no (unknown) (unknown) ovaries I feel (units (unknown) date) that this might unknown) not be tolerable for her today. My differential (unknown) (no (unknown) (unknown) persistent (units (unk nown) date) vomiting or other unknown) bothersome symptoms]. (unknown) (no (unknown) (unknown) personal events (units (unknown) date) going on with her unknown) family. She has not been able to in for care (unknown) (no (unknown) (unknown) pharmacy, follow (units (unknown) date) up with her unknown) primary care provider. (unknown) (no (unknown) (unknown) polyethylene (units (u nknown) date) glycol 3350 17 17 unknown) g PO DAILY for soft stool #119 08/27/22 (unknown) (no (unknown) (unknown) polyethylene (units (u nknown) date) glycol 3350 unknown) [Miralax] 17 gram/dose powder (unknown) (no (unknown) (unknown) potassium (units (unkn own) date) chloride 20 mEq 20 unknown) meq PO BID #4 tabs 08/27/22 (unknown) (no (unknown) (unknown) potassium (units (unkn own) date) chloride 20 mEq unknown) tablet,ER particles/crystals (unknown) (no (unknown) (unknown) was (units ( unknown) date) negative. unknown) (unknown) (no (unknown) (unknown) , (units (unk nown) date) unknown) (unknown) (no (unknown) (unknown) primary care (units (u nknown) date) provider for test unknown) of cure ultrasound imaging if needed. She knows (unknown) (no (unknown) (unknown) reassuring, (units (un known) date) hypokalemia with a unknown) potassium of 3.2, prescribed oral potassium x6 (unknown) (no (unknown) (unknown) records if (units (unk nown) date) available. 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 (units (unkno wn) date) unknown) (unknown) (no (unknown) (unknown) substance use (units ( unknown) date) type: does not use unknown) (unknown) (no (unknown) (unknown) tablet,extended (units (unknown) date) release(part/cryst unknown) ) (unknown) (no (unknown) (unknown) tabs for (units (unkno wn) date) treatment this unknown) with food and water. No lactic acidosis, UA shows few (unknown) (no (unknown) (unknown) test of cure. (units ( unknown) date) Thank you for your unknown) patients today, I hope that you feel better (unknown) (no (unknown) (unknown) then this is your (units (unknown) date) diagnosis and this unknown) is what we are empirically treating you for (unknown) (no (unknown) (unknown) this was (units (unkno wn) date) discussed with the unknown) patient. All of her lab work came back otherwise (unknown) (no (unknown) (unknown) to the emergency (units (unknown) date) department for an unknown) urgent ultrasound. Please see Joycelyn to (unknown) (no (unknown) (unknown) today. (units (unkno wn) date) unknown) (unknown) (no (unknown) (unknown) tramadol 50 mg (units (unknown) date) tablet 50 mg PO unknown) BID PRN pain #10 tabs 08/27/22 (unknown) (no (unknown) (unknown) tramadol 50 mg (units (unknown) date) tablet unknown) (unknown) (no (unknown) (unknown) ultrasound but (units (unknown) date) patient's wet came unknown) back positive for bacterial vaginosis and she (unknown) (no (unknown) (unknown) vaginal (units (unkno wn) date) discharge. Urine unknown) gonorrhea and chlamydia is negative, patient opted for (unknown) (no (unknown) (unknown) vaginal gel grams (units (unknown) date) unknown) (unknown) (no (unknown) (unknown) vomiting. She (units ( unknown) date) denies severe unknown) symptoms, states that she has some stressful (unknown) (no (unknown) (unknown) wheezing, (units (unkn own) date) stridor, or unknown) abnormal breath sounds. No retractions or tachypnea. (unknown) (no (unknown) (unknown) with her that this (units (unknown) date) is most likely unknown) infection and since she was nontender over her (unknown) (no (unknown) (unknown) yet. States that (units (unknown) date) she has had unknown) unprotected intercourse with a partner. She Social History date description facility 2022-08-27 00:00 Never smoked tobacco ([facility] Vital Signs date measurement value units 2022-08-27 00:00 BMI 42.5 kg/m2 2022-08-27 00:00 BP_diastolic 84 mmHg 2022-08-27 00:00 BP_systolic 133 mmHg 2022-08-27 00:00 heart_rate 80 /min 2022-08-27 00:00 height_metric 170.18 cm 2022-08-27 00:00 height_standard 67 in 2022-08-27 00:00 o2_saturation 99 % 2022-08-27 00:00 respiration_rate 18 /min 2022-08-27 00:00 temperature_metric 36.83 C 2022-08-27 00:00 temperature_standard 98.3 F 2022-08-27 00:00 weight_metric 123.37 kg 2022-08-27 00:00 weight_standard 271.98 lb
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
[2022-11-13 16:09] VITALS: BP 130/88
== END 2022-11-13 16:08 | disposition home or self-care (01) ==
LOC: ED 12:59
DX: S09.90XA Unspecified injury of head, initial encounter (principal); W50.0XXA Accidental hit or strike by another person, initial encounter; Y93.F9 Activity, other caregiving; Y92.89 Other specified places as the place of occurrence of the external cause; Y99.0 Civilian activity done for income or pay
CPT/HCPCS: 99281; 99282

== ENCOUNTER 2022-12-17 19:07 | Outpatient (CLI) | payer OTHER, MEDICAID | END 2022-12-17 23:59 | disposition critical access hospital (66) | LOC: EMS 19:07 | DX: R09.89 Other specified symptoms and signs involving the circulatory and respiratory systems (principal); R50.9 Fever, unspecified | CPT/HCPCS: A0425; A0429 ==

== ENCOUNTER 2022-12-17 19:28 | Emergency (ER) | payer OTHER, MEDICAID ==
[2022-12-17] MEDS ORDERED: IBUPROFEN 600 MG TABLET PO STA (20:29)
[2022-12-17] MEDS ORDERED: hydrOXYzine PAMOATE 25 MG CAPSULE PO STA (20:29)
--- NOTE | 2022-12-17 20:34 | ED Physician Documentation ---
PD HPI URI - Stated complaint Stated Complaint: Allergic RX - Chief complaint Chief Complaint: Heent - History obtained from History obtained from: Patient - Additional information Additional information: 22-year-old girl, history of anxiety and PTSD,Presents with viral URI symptoms starting this evening as well as a panic attack.There are some confusion about a possible allergic reaction since she states she is allergic to pineapple and they had pineapple at lunch at the place she was staying today, but she endorses no exposure. denies rash, vomiting, pruritus. does endorse intense anxiety and feelings of malaise. Review of Systems Constitutional: reports: Fever Throat: reports: Sore throat Cardiac: reports: Palpitations. denies: Chest pain / pressure Respiratory: reports: Dyspnea. 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 : None HEENT: None Psych: Depression, Anxiety, Panic attacks Musculoskeletal: None Derm: Eczema - Past Surgical History Past Surgical History: Yes General: Cholecystectomy - Present Medications Home Medications: Ambulatory Orders Medication Instructions Recorded Confirmed amLODIPine [Norvasc] 2.5 mg ORAL DAILY 11/13/22 11/13/22 - Allergies Allergies/Adverse Reactions: Allergies Allergy/AdvReac Type Severity Reaction Status Date / Time No Known Drug Allergies Allergy Verified 11/13/22 13:04 - Social History Does the pt smoke?: No Smoking Status: Never smoker Does the pt drink ETOH?: No Does the pt have substance abuse?: No - Immunizations Immunizations are current?: Yes - POLST Patient has POLST: No PD ED PE NORMAL - Vitals Vital signs reviewed: Yes - General General: Alert and oriented X 3, Other (anxious appearing, calming after breath coaching, exam, and reassurance) - HEENT HEENT: Atraumatic, PERRL, EOMI, Moist mucous membranes, Other (mild posterior oropharyngeal erythema. no exudates. ) - Neck Neck: Supple, no meningeal sign, Other (+ant cervical adenopathy) - Cardiac Cardiac: Other (tachycardic rate, regular rhythm) - Respiratory Respiratory: No respiratory distress, Clear bilaterally - Abdomen Abdomen: Non tender, Non distended - Derm Derm: Normal color, Warm and dry Results - Vitals Vitals: Vital Signs - 24 hr 12/17/22 12/17/22 12/17/22 19:34 19:55 21:07 Temperature 38.6 C H 37.8 C Heart Rate 109 H 104 H 101 H Respiratory 19 23 20 Rate Blood Pressure 130/91 H 136/87 H 129/88 H O2 Saturation 100 100 98 Oxygen O2 Source Room air - Labs Labs: Laboratory Tests 12/17/22 20:23 Group A Strep Rapid Negative PD Medical Decision Making - ED course ED course: 22yF p/w viral uri sx and panic attack. symptoms improved s/p ibuprofen and atarax. patient tolerating po. plan to reevaluate after strep test result. Strep test negative. patient feeling slightly better, still with throat pain and body aches. symptomatic care discussed. return precautions given. RVP performed upon request. Departure - Departure Disposition: 01 Home, Self Care Clinical Impression: URI (upper respiratory infection), Anxiety attack Condition: Stable Instructions: ED URI Viral Comments: You were seen in the emergency department for a cold virus. Your strep swab was negative, meaning you are unlikely to have strep throat. A culture was also sent and we will contact you if the results are positive. you should get lots of rest and hydrate really well. Do not return to work until you are 24 hours without fever and with improving symptoms. Follow-up with your primary care provider and return to the emergency department if you have new or worsening symptoms or other concerns
[2022-12-17 20:49] LABS: RAPID STREP SCREEN Negative (Negative)
[2022-12-17 21:09] VITALS: BP 129/88
[2022-12-17 22:25] LABS: B. PARAPERTUSSIS- RESP PCR PAN NOT DETECTED; B. PERTUSSIS- RESP PCR PANEL NOT DETECTED; C. PNEUMONIAE- RESP PCR PANEL NOT DETECTED; CORONAVIRUS 229E-RESP PCR NOT DETECTED; CORONAVIRUS HKU1-RESP PCR NOT DETECTED; CORONAVIRUS NL63-RESP PCR NOT DETECTED; CORONAVIRUS OC43-RESP PCR NOT DETECTED; HUMAN METAPNEUMOVIRUS NOT DETECTED; INFLUENZA A- RESP PCR PANEL NOT DETECTED; INFLUENZA B - RESP PCR PANEL NOT DETECTED; M. PNEUMONIAE- RESP PCR PANEL NOT DETECTED; PARAINFLUENZA VIRUS 1 NOT DETECTED; PARAINFLUENZA VIRUS 2 NOT DETECTED; PARAINFLUENZA VIRUS 3 NOT DETECTED; PARAINFLUENZA VIRUS 4 NOT DETECTED; RHINOVIRUS/ENTEROVIRUS NOT DETECTED; RSV- RESP PCR PANEL NOT DETECTED; SARS-CoV-2 -RESP PCR PANEL NOT DETECTED
--- NOTE | 2022-12-18 18:19 | ED Physician Documentation ---
ED Addendum - Addendum Addendum: 12/18/22 18:18 The patient's throat culture comes back resulting beta-hemolytic strep group G 4+ growth. The patient has not allergic to any medicines. There were no prescriptions sent. The patient request [facility] pharmacy. I am transmitting a prescription for penicillin 3 times daily for a week to [facility] pharmacy. Nursing will notify the patient.
== END 2022-12-17 21:35 | disposition home or self-care (01) ==
LOC: EDUNIT# → ED 19:28
DX: F41.9 Anxiety disorder, unspecified (principal); J02.0 Streptococcal pharyngitis; B95.4 Other streptococcus as the cause of diseases classified elsewhere; I10 Essential (primary) hypertension; Z20.822 Contact with and (suspected) exposure to COVID-19
CPT/HCPCS: 87070; 87077; 87430; 87633; 99283; A9270

== ENCOUNTER 2023-02-12 11:57 | Outpatient (CLI) | payer OTHER ==
--- NOTE | 2023-02-12 14:27 | Ultrasound Report ---
PROCEDURE: Pelvic w/Transvaginal INDICATIONS: DYSMENORRHEA TECHNIQUE: Real-time scanning was performed of the pelvic organs, with image documentation. Additional endovagi nal scanning was necessary due to incomplete visualization of the adnexal and endometrial structures by transabdominal scanning. COMPARISON: None. FINDINGS: Uterus: Uterus is anteverted and normal in size at 6.4 x 3.0 x 4.4 cm. The myometrium is homogeneou s. The endometrium measures 1 mm in combined thickness. No focal uterine mass Ovaries: The right ovary measures 2.8 x 1.8 x 1.7 cm, with a calculated ovarian volume of 4.3 cc. T he left ovary measures 2.2 x 1.3 x 1.2 cm, with a calculated ovarian volume of 1.8 cc. The ovaries h ave a normal sonographic appearance. Less than 12 follicles can be seen in each ovary. No adnexal m asses are seen. No cystic lesions measuring greater than 3 cm. Other: No pathologic free abdominal or pelvic fluid. IMPRESSION: Negative examination. Reviewed by: Clive Sheppard MD on 02/12/2023 2:26 PM PDT Approved by: Clive Sheppard MD on 02/12/2023 2:26 PM PDT Station ID: [id number]
== END 2023-02-12 11:58 | disposition home or self-care (01) ==
LOC: DI 11:57
PROVIDERS: ATTEND Obstetrics & Gynecology
DX: N94.6 Dysmenorrhea, unspecified (principal); R10.2 Pelvic and perineal pain; G89.29 Other chronic pain

== ENCOUNTER 2023-07-20 08:29 | Emergency (ER) | payer OTHER ==
[2023-07-20 09:04] VITALS: BP 140/82; O2SAT 100
--- NOTE | 2023-07-20 11:16 | ED Physician Documentation ---
PD HPI ABD PAIN - Stated complaint Stated Complaint: GI/PX - Chief complaint Chief Complaint: Abd Pain - History obtained from History obtained from: Patient - History of Present Illness Timing - onset: Yesterday Timing - duration: Hours (she had laparascopic surgery for endometriosis couple weeks ago and was doing well recovery, then back to wrok yesterday and had to help support/hold 150 lb peersis and felt onset pain left abd at one incision site. No redness, drainage, swelling. Was sharp pain for few hours, increased with moement) Timing - details: Abrupt onset Quality: Sharp, Stabbing, Pain Location: LUQ Radiation: No: Chest, Lower back Associated symptoms: No: Fever, Nausea, Vomiting Recently seen: Surgery Review of Systems Constitutional: denies: Fever, Chills Skin: denies: Rash, Lesions, Abrasion (s) PD PAST MEDICAL HISTORY - Past Medical History Past Medical History: Yes Cardiovascular: Hypertension Respiratory: None Endocrine/Autoimmune: None GI: None EPIC MANAGER: Endometriosis, Ovarian cysts : None HEENT: None Psych: Depression, Anxiety, Panic attacks Musculoskeletal: None Derm: Eczema - Past Surgical History Past Surgical History: Yes General: Cholecystectomy /EPIC MANAGER: Endometrial ablation - Present Medications Home Medications: Ambulatory Orders Medication Instructions Recorded Confirmed hydrOXYzine PAMOATE [Vistaril] 25 mg PO Q6H PRN #30 cap 04/29/23 Ondansetron Odt [Zofran] 4 mg TL Q6H PRN #15 tablet 07/20/23 - Allergies Allergies/Adverse Reactions: Allergies Allergy/AdvReac Type Severity Reaction Status Date / Time pineapple Allergy Rash Verified 07/20/23 08:48 - Social History Does the pt smoke?: No Smoking Status: Never smoker Does the pt drink ETOH?: Yes Does the pt have substance abuse?: Yes Substance Use and Type: CBD oil / Products - Immunizations Immunizations are current?: Yes - POLST Patient has POLST: No PD ED PE NORMAL - Vitals Vital signs reviewed: Yes - General General: Alert and oriented X 3, No acute distress, Well developed/nourished - Abdomen Abdomen: Normal bowel sounds, Soft, Non distended, No organomegaly, Other (scopic incision sites without signs of redness. Abd soft. I presume some scarring tissue/adhesions pulled with the movement. ) Results - Vitals Vitals: Vital Signs - 24 hr 12/18/23 08:42 Temperature 35.9 C L Heart Rate 61 Respiratory 16 Rate Blood Pressure 140/82 H O2 Saturation 100 Oxygen O2 Source Room air PD Medical Decision Making - ED course Complexity details: d/w patient Departure - Departure Disposition: 01 Home, Self Care Clinical Impression: Abdominal wall pain, Status post laparoscopy Condition: Stable Record reviewed to determine appropriate education?: Yes Prescriptions: Ondansetron Odt [Zofran] 4 mg TL Q6H PRN #15 tablet PRN Reason: Nausea / Vomiting Comments: It is unlikely the scar tissue in the area of the surgery hold with the movemen t. 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 Subsequently follow-up with your surgeon as well. I would suggest some anti-inflammatory such as ibuprofen or naproxen 2-3 [id number] tablets twice daily with food for the next week. Add Tylenol every 4-6 hours if needed for pain. Ondansetron if needed for nausea. Recheck or return if increasing pain or persistent or you develop any redness or swelling or fevers to suggest infection. No signs of that at this time. Forms: PCP List, Activity restrictions Discharge Date/Time: 07/20/23 11:27
== END 2023-07-20 11:27 | disposition home or self-care (01) ==
LOC: ED 08:29
DX: R10.12 Left upper quadrant pain (principal); I10 Essential (primary) hypertension; Z98.890 Other specified postprocedural states
CPT/HCPCS: 99282; 99283

== ENCOUNTER 2023-08-15 11:07 | Emergency (ER) | payer OTHER ==
--- NOTE | 2023-08-15 12:58 | ED Physician Documentation ---
History of Present Illness - Stated complaint Stated Complaint: NAUSEA/ABD BRUISING - Chief complaint Chief Complaint: Abd Pain - History obtained from History obtained from: Patient, Family - History of Present Illness Pain level max: 9 Pain level now: 7 - Additonal information Additional information: Patient is a 23-year-old female 3 days status post laparoscopic hysterectomy in [place]. She states that she had increasing lower abdominal pain today and increasing bruising in her lower abdomen. She states she attempted to call her surgeon but the after-hours number "did not work". No fevers. No chills. She had a scopolamine patch on until today, when she took it off she did feel nauseated but is no longer nauseated. Still has lower abdominal pain. Is on Percocet at home for pain. No urinary symptoms. No vaginal bleeding or discharge. Nothing makes it better or worse. Patient declines any pain medication or nausea medication at this time. Review of Systems Constitutional: denies: Fever, Chills Nose: denies: Rhinorrhea / runny nose, Congestion Cardiac: denies: Palpitations Respiratory: denies: Dyspnea, Cough GI: reports: Nausea. 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 : None HEENT: None Psych: Depression, Anxiety, Panic attacks Musculoskeletal: None Derm: Eczema - Past Surgical History Past Surgical History: Yes General: Cholecystectomy /PLASTIC PARTS FABRICATOR TRIMMER: Endometrial ablation, Hysterectomy - Present Medications Home Medications: Ambulatory Orders Medication Instructions Recorded Confirmed Ibuprofen [Motrin] 1 tablet PO Q8H PRN 08/15/23 08/15/23 Oxycodone HCl/Acetaminophen 1 - 2 each PO Q4HR PRN 08/15/23 08/15/23 [Oxycodone-Acetaminophen 5-325] Promethazine [Phenergan] 25 mg PO Q6H PRN #10 tab 08/15/23 - Allergies Allergies/Adverse Reactions: Allergies Allergy/AdvReac Type Severity Reaction Status Date / Time pineapple Allergy Rash Verified 08/15/23 11:25 - Social History Does the pt smoke?: No Smoking Status: Never smoker Does the pt drink ETOH?: No Does the pt have substance abuse?: No - Immunizations Immunizations are current?: Yes - POLST Patient has POLST: No PD ED PE NORMAL - Vitals Vital signs reviewed: Yes - General General: Alert and oriented X 3, No acute distress - HEENT HEENT: PERRL, Moist mucous membranes - Neck Neck: Supple, no meningeal sign - Cardiac Cardiac: RRR, Strong equal pulses - Respiratory Respiratory: No respiratory distress, Clear bilaterally - Abdomen Abdomen: Soft, Non tender, Non distended, Other (Incision sites are clean, dry, intact. No signs of infection. There is an area of ecchymosis inferior to the umbilicus, approximately 6 x 8 cm.) - Back Back: No spinal TTP - Derm Derm: Warm and dry - Extremities Extremities: No edema, No calf tenderness / cord - Neuro Neuro: Alert and oriented X 3 - Psych Psych: Normal mood, Normal affect Results - Vitals Vitals: Vital Signs - 24 hr 08/15/23 08/15/23 08/15/23 11:23 12:42 13:53 Temperature 36.4 C L 36.3 C L 36.2 C L Heart Rate 82 73 81 Respiratory 20 18 18 Rate Blood Pressure 150/93 H 129/62 123/49 L O2 Saturation 100 99 98 Oxygen O2 Source Room air - Labs Labs: Laboratory Tests 08/15/23 08/15/23 12:55 12:55 WBC 9.2 RBC 4.12 L Hgb 11.1 L Hct 35.2 L MCV 85.4 MCH 26.9 L MCHC 31.5 L RDW 12.8 Plt Count 455 H MPV 8.8 Neut # (Auto) 6.6 Lymph # (Auto) 1.3 L [place] # (Auto) 0.7 Eos # (Auto) 0.5 Baso # (Auto) 0.0 Absolute Nucleated RBC 0.00 Nucleated RBC % 0.0 Sodium 139 Potassium 4.0 Chloride 101 Carbon Dioxide 31 Anion Gap 7.0 BUN 10 Creatinine 0.5 L Estimated GFR (MDRD) 150 Glucose 93 Calcium 9.5 Total Bilirubin 0.7 AST 14 ALT 14 Alkaline Phosphatase 69 Total Protein 7.0 Albumin 4.1 Globulin 2.9 Albumin/Globulin Ratio 1.4 Lipase 12 - Rads (name of study) CT abd/pelvis Relevant Findings:: Final report received, See rad report PD Medical Decision Making - ED course Complexity details: reviewed results, re-evaluated patient, considered differential, d/w patient, d/w family ED course: Patient with abdominal pain status post laparoscopic hysterectomy. No significant lab abnormalities, mild anemia, not unexpected postsurgical. CT scan does not reveal any abnormal fluid collections, abscess. Free air as expected. Pain well-controlled in the emergency department. Tolerating p.o. without difficulty. No fevers. No evidence of sepsis. Abdomen is soft, nontender nondistended on serial exam. Expect that the ecchymosis will improve over the next few days. Will have her follow-up with her PCP and surgeon as scheduled for further care. No indication for antibiotics. No evidence of infection. Patient counseled regarding signs and symptoms for which I believe and urgent re-evaluation would be necessary. Patient with good understanding of and agreement to plan and is comfortable going home at this time This document was made in part using voice recognition software. While efforts are made to proofread this document, sound alike and grammatical errors may occur. Departure - Departure Disposition: 01 Home, Self Care Clinical Impression: Postoperative generalized abdominal pain Condition: Good Instructions: ED Post Op Pain Follow-Up: Joycelyn Diego PA [Primary Care Provider] - Within 1 week Prescriptions: Promethazine [Phenergan] 25 mg PO Q6H PRN #10 tab PRN Reason: Nausea / Vomiting Comments: Your prescription was sent to [facility] in [place]. Your CT scan does not show any significant acute abnormalities other than expected postoperative changes. Your laboratory testing does not show any significant abnormalities as well. Please follow-up with your doctor for further care. Please return if you worsen. Continue your current medications at home. Forms: PCP List Discharge Date/Time: 08/15/23 14:47
[2023-08-15 13:04] LABS: BASOPHILS % (AUTO) 0.4 %; EOSINOPHILS # (AUTO) 0.5 10^3/uL (0.0-0.7); EOSINOPHILS % (AUTO) 5.1 %; HCT - HEMATOCRIT 35.2 % (37.0-47.0); HGB - HEMOGLOBIN 11.1 g/dL (12.0-16.0); LYMPHOCYTES # (AUTO) 1.3 10^3/uL (1.5-3.5); LYMPHOCYTES % (AUTO) 14.2 %; MEAN CORPUSCULAR HEMOGLOBIN 26.9 pg (27.0-31.0); MEAN CORPUSCULAR HGB CONC 31.5 g/dL (32.0-36.0); MEAN CORPUSCULAR VOLUME 85.4 fL (81.0-99.0); MEAN PLATELET VOLUME 8.8 fL (7.9-10.8); MONOCYTES # (AUTO) 0.7 10^3/uL (0.0-1.0); NEUTROPHILS # (AUTO) 6.6 10^3/uL (1.5-6.6); NEUTROPHILS % (AUTO) 72.1 %; PLT - PLATELET COUNT 455 10^3/uL (130-450); RED BLOOD COUNT 4.12 10^6/uL (4.20-5.40); RED CELL DISTRIBUTION WIDTH 12.8 % (12.0-15.0); WHITE BLOOD COUNT 9.2 x10^3/uL (4.8-10.8)
[2023-08-15] MEDS ORDERED: iohexoL-300 100 ML VIAL ONE (13:09)
[2023-08-15 13:20] LABS: ALBUMIN 4.1 g/dL (3.2-5.5); ALBUMIN/GLOBULIN RATIO 1.4 (1.0-2.2); BILIRUBIN,TOTAL 0.7 mg/dL (0.2-1.0); CALCIUM 9.5 mg/dL (8.5-10.3); CREATININE 0.5 mg/dL (0.6-1.3)
[2023-08-15] MEDS ORDERED: MORPHINE 2 MG/ML CARPUJECT IVP STA (13:41)
[2023-08-15] MEDS ORDERED: iohexoL-300 100 ML VIAL IVP ONE (13:54)
[2023-08-15 13:56] VITALS: BP 123/49; O2SAT 98
--- NOTE | 2023-08-15 14:15 | CT Report ---
PROCEDURE: Abdomen/Pelvis W INDICATIONS: diffuse abd pain s/p hysterectomy 3 days CONTRAST: Omni 300 100ml TECHNIQUE: After the administration of intravenous contrast, a CT scan of the abdomen and pelvis was performed. Images were recorded and evaluated at appropriate window settings. Reformats: coronal and sagittal. F or radiation dose reduction, the following was used: automated exposure control, adjustment of mA and /or kV according to patient size. COMPARISON: None. FINDINGS: Image quality: Excellent. Lung bases and heart: Unremarkable. Liver: Hepatic steatosis. Gallbladder and biliary tree: Surgically absent. No biliary dilation, accounting for post-cholecystec veena state. Spleen: No splenomegaly. Pancreas: No pancreatic ductal dilation. Adrenals: No adrenal nodule. Kidneys and ureters: No hydronephrosis. No renal cystic lesion which requires follow up. No solid mas s. Bowel and peritoneum: No bowel distension. No pathologic free fluid. Diverticulosis without evidence of diverticulitis. Lymph nodes: No central or retroperitoneal adenopathy. Vessels: No infrarenal aortic aneurysm. PELVIS Reproductive organs: The uterus is surgically absent. There is extensive foci of pneumoperitoneum and subcutaneous emphysema extending along the abdominal wall and along the surgical tracts. Mild to mod erate fatty inflammatory changes most prominent along the abdominal midline peritoneal fat adjacent t o the surgical site. No organized abscess identified. Avid enhancement of the surgical superficial remy rgical tract. Bladder: No abnormal wall thickening, accounting for underdistention. Pelvic lymph nodes: No pelvic adenopathy by size criteria. Bones: No aggressive osseous abnormality. Other: No significant ventral or inguinal hernia. IMPRESSION: Postsurgical changes without evidence of abscess. Hepatic steatosis. Diverticulosis without evidence of acute diverticulitis. Reviewed by: Gee Mauricio MD on 08/15/2023 1:14 PM [facility] Approved by: Gee Mauricio MD on 08/15/2023 1:14 PM [facility] Station ID: [id number]
== END 2023-08-15 14:47 | disposition home or self-care (01) ==
LOC: ED 11:07
DX: R10.84 Generalized abdominal pain (principal); Z98.890 Other specified postprocedural states
CPT/HCPCS: 36415; 74177; 80053; 83690; 85025; 96374; 99284; Q9967

== ENCOUNTER 2023-09-14 22:34 | Emergency (ER) | payer OTHER ==
[2023-09-14 23:24] LABS: BASOPHILS # (AUTO) 0.1 10^3/uL (0.0-0.1); BASOPHILS % (AUTO) 1.1 %; EOSINOPHILS # (AUTO) 0.2 10^3/uL (0.0-0.7); EOSINOPHILS % (AUTO) 2.3 %; HCT - HEMATOCRIT 40.7 % (37.0-47.0); HGB - HEMOGLOBIN 12.9 g/dL (12.0-16.0); LYMPHOCYTES # (AUTO) 2.2 10^3/uL (1.5-3.5); LYMPHOCYTES % (AUTO) 26.1 %; MEAN CORPUSCULAR HEMOGLOBIN 26.5 pg (27.0-31.0); MEAN CORPUSCULAR HGB CONC 31.7 g/dL (32.0-36.0); MEAN CORPUSCULAR VOLUME 83.7 fL (81.0-99.0); MEAN PLATELET VOLUME 9.1 fL (7.9-10.8); MONOCYTES # (AUTO) 0.9 10^3/uL (0.0-1.0); MONOCYTES % (AUTO) 10.8 %; NEUTROPHILS # (AUTO) 4.9 10^3/uL (1.5-6.6); NEUTROPHILS % (AUTO) 59.5 %; PLT - PLATELET COUNT 469 10^3/uL (130-450); RED BLOOD COUNT 4.86 10^6/uL (4.20-5.40); RED CELL DISTRIBUTION WIDTH 13.3 % (12.0-15.0); WHITE BLOOD COUNT 8.3 x10^3/uL (4.8-10.8)
[2023-09-14 23:38] LABS: INR 1.3 (0.8-1.2); PT - PROTHROMBIN TIME 14.2 secs (9.9-12.6)
[2023-09-14] MEDS: SODIUM CHLORIDE 0.9% 1,000 ML IV STA (23:39)
[2023-09-14] MEDS: ONDANSETRON 4 MG/2 ML VIAL IVP STA (23:40)
[2023-09-14 23:42] LABS: ALBUMIN 4.7 g/dL (3.2-5.5); ALBUMIN/GLOBULIN RATIO 1.6 (1.0-2.2); BILIRUBIN,TOTAL 0.9 mg/dL (0.2-1.0); CREATININE 0.6 mg/dL (0.6-1.3); POTASSIUM 3.1 mmol/L (3.5-4.5); TOTAL PROTEIN 7.6 g/dL (6.4-8.9)
[2023-09-14 23:49] LABS: BILIRUBIN,URINE NEGATIVE (NEGATIVE); GLUCOSE, URINE (UA) NEGATIVE (NEGATIVE); KETONES,URINE (UA) NEGATIVE (NEGATIVE); LEUKOCYTE ESTERASE, URINE NEGATIVE (NEGATIVE); NITRITE,URINE NEGATIVE (NEGATIVE); OCCULT BLOOD,URINE NEGATIVE (NEGATIVE); PH,URINE 6.5 PH (5.0-7.5); PROTEIN,URINE TRACE mg/dL (NEGATIVE); UROBILINOGEN,URINE 0.2 (NORMAL) E.U./dL (NORMAL)
[2023-09-14 23:50] LABS: CLARITY,URINE SL. CLOUDY (CLEAR)
[2023-09-14 23:51] LABS: HCG UR QUAL NEGATIVE
[2023-09-15 00:01] LABS: AMORPHOUS SEDIMENT,UR Few /LPF; BACTERIA,URINE Few /HPF (None Seen); MUCUS,URINE Few Strands; RBC,URINE 0-5 /HPF (0-5); SQUAMOUS EPITHELIAL CELL,UR MOD Squamous (<= Few); WBC,URINE 0-3 /HPF (0-5)
[2023-09-15 00:02] LABS: CRYSTALS,URINE 6-10 Calcium Oxalate /LPF
[2023-09-15] MEDS: MAG HYDROX/AL HYDROX/SIMETH 30 ML UDC PO STA (00:03)
[2023-09-15] MEDS: LIDOCAINE VISCOUS 2% 15 ML ORAL SYRINGE MM STA (00:03)
--- NOTE | 2023-09-15 00:15 | ED Physician Documentation ---
PD HPI NVD - Stated complaint Stated Complaint: N/V/D/GI - Chief complaint Chief Complaint: Abd Pain - History obtained from History obtained from: Patient - Additonal information Additional information: Patient is a 23-year-old female presenting for evaluation of 1 week of diarrhea. Patient reports having multiple episodes of loose stools for the past 1 week. She reports having decreased p.o. intake. Today she noticed some spots of blood in her last episode of diarrhea. States that the diarrhea is mostly watery. Denies clots. Also reports having 1 episode of emesis today that had a few spe cks of what looked like blood in it. Patient reports having a Malagasy pizza tonight but does not think it was related to the sauce. Reports having some upper abdominal pain. Had a hysterectomy a month ago. Does not take any blood thinners. Has noticed her decrease in her weight over the past week which she estimates to be about 15 pounds.No known sick contacts. No recent travel or antibiotic use. 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 : None HEENT: None Psych: Depression, Anxiety, Panic attacks Musculoskeletal: None Derm: Eczema Other Past Medical History: PCOS - Past Surgical History Past Surgical History: Yes General: Cholecystectomy /IRON GUARDRAIL INSTALLER: Endometrial ablation, Hysterectomy - Present Medications Home Medications: Ambulatory Orders Medication Instructions Recorded Confirmed Ondansetron Odt [Zofran] 4 mg TL Q6H PRN #10 tablet 09/15/23 - Allergies Allergies/Adverse Reactions: Allergies Allergy/AdvReac Type Severity Reaction Status Date / Time pineapple Allergy Anaphylaxis Verified 09/14/23 22:47 - Social History Does the pt smoke?: No Smoking Status: Never smoker Does the pt drink ETOH?: No Does the pt have substance abuse?: No - Immunizations Immunizations are current?: Yes - POLST Patient has POLST: No PD ED PE NORMAL - General General: Alert and oriented X 3, No acute distress, Well developed/nourished - HEENT HEENT: Atraumatic - Neck Neck: Supple, no meningeal sign - Cardiac Cardiac: RRR - Respiratory Respiratory: No respiratory distress, Clear bilaterally - Abdomen Abdomen: Normal bowel sounds, Soft, Non distended, Other (Mild epigastric tenderness; Well-healed laparoscopic incisions) - Rectal Rectal: Other (Chaperoned by Birdie AMARAL, normal external exam with no signs of fissure, normal rectal tone, normal colored stool, no signs of gross blood) - Derm Derm: Warm and dry - Neuro Neuro: Normal speech Results - Vitals Vitals: Vital Signs - 24 hr 09/14/23 09/15/23 09/15/23 22:43 00:47 01:10 Temperature 36.2 C L Heart Rate 74 68 71 Respiratory 17 16 18 Rate Blood Pressure 139/92 H 105/67 105/67 O2 Saturation 99 100 99 Oxygen O2 Source Room air - Labs Labs: Microbiology 09/14/23 23:05 Occult Blood - Final Stool Laboratory Tests 09/14/23 09/14/23 09/14/23 23:05 23:05 23:05 WBC 8.3 RBC 4.86 Hgb 12.9 Hct 40.7 MCV 83.7 MCH 26.5 L MCHC 31.7 L RDW 13.3 Plt Count 469 H MPV 9.1 Neut # (Auto) 4.9 Lymph # (Auto) 2.2 Crane # (Auto) 0.9 Eos # (Auto) 0.2 Baso # (Auto) 0.1 Absolute Nucleated RBC 0.00 Nucleated RBC % 0.0 PT 14.2 H INR 1.3 H Sodium 138 Potassium 3.1 L Chloride 103 Carbon Dioxide 26 Anion Gap 9.0 BUN 9 Creatinine 0.6 Estimated GFR (MDRD) 122 Glucose 103 Calcium 10.0 Total Bilirubin 0.9 AST 12 ALT 18 Alkaline Phosphatase 73 Total Protein 7.6 Albumin 4.7 Globulin 2.9 Albumin/Globulin Ratio 1.6 Lipase 11 Urine Color Urine Clarity Urine pH Ur Specific [place] Urine Protein Urine Glucose (UA) Urine Ketones Urine Occult Blood Urine Nitrite Urine Bilirubin Urine Urobilinogen Ur Leukocyte Esterase Urine RBC Urine WBC Ur Squamous Epith Cells Urine Crystals Amorphous Sediment Urine Bacteria Urine Casts Urine Mucus Ur Microscopic Review Urine Culture Comments Urine HCG, Qual 09/14/23 23:40 WBC RBC Hgb Hct MCV MCH MCHC RDW Plt Count MPV Neut # (Auto) Lymph # (Auto) Crane # (Auto) Eos # (Auto) Baso # (Auto) Absolute Nucleated RBC Nucleated RBC % PT INR Sodium Potassium Chloride Carbon Dioxide Anion Gap BUN Creatinine Estimated GFR (MDRD) Glucose Calcium Total Bilirubin AST ALT Alkaline Phosphatase Total Protein Albumin Globulin Albumin/Globulin Ratio Lipase Urine Color YELLOW Urine Clarity SL. CLOUDY Urine pH 6.5 Ur Specific [place] 1.025 Urine Protein TRACE Urine Glucose (UA) NEGATIVE Urine Ketones NEGATIVE Urine Occult Blood NEGATIVE Urine Nitrite NEGATIVE Urine Bilirubin NEGATIVE Urine Urobilinogen 0.2 (NORMAL) Ur Leukocyte Esterase NEGATIVE Urine RBC 0-5 Urine WBC 0-3 Ur Squamous Epith Cells MOD Squamous H Urine Crystals 6-10 Calcium Oxalate Amorphous Sediment Few Urine Bacteria Few Urine Casts 0-2 Course Granular Urine Mucus Few Strands Ur Microscopic Review INDICATED Urine Culture Comments NOT INDICATED Urine HCG, Qual NEGATIVE PD Medical Decision Making - ED course Complexity details: reviewed results, re-evaluated patient, d/w patient ED course: Patient is a 23-year-old female presenting for evaluation of diarrhea which she states has been ongoing for 1 week and today noticed some blood in it along with 1 episode of emesis that she states she thought could also have some blood in it. Reports some mild epigastric tenderness. Vital signs are stable. Rectal exam performed with certified orthoptist and there is no obvious blood. Hemoccult is negative. CBC, chemistries were obtained and reviewed. Normal hemoglobin. Potassium of 3.1. Patient was given IV fluids, Toradol, GI cocktail, Pepcid and Tylenol with improvement in her symptoms. She is tolerating p.o. here. No episodes of emesis. No diarrhea not able to give a stool sample. Urine is negative for signs of infection.Her abdominal exam is quite benign so I do not think emergent imaging is needed at this time. Patient counseled regarding continued supportive care as well as need for follow-up. She is advised on co ncerning symptoms to return for. Departure - Departure Disposition: 01 Home, Self Care Clinical Impression: Epigastric abdominal pain, Blood in the stool, Hypokalemia, Diarrhea Condition: Stable Instructions: ED Diet Vomiting Diarrhea, ED Epigastric Pain [facility] Follow-Up: Joycelyn Diego PA [Primary Care Provider] - [facility] [Provider Group] (Please make a follow up appointment to discuss the blood in your stools and whether you should have a colonoscopy) Prescriptions: Ondansetron Odt [Zofran] 4 mg TL Q6H PRN #10 tablet PRN Reason: Nausea / Vomiting Comments: You were evaluated for blood in your stools along with vomiting and diarrhea and upper abdominal pain. Your labs are overall reassuring with a stable hemoglobin. Your potassium was slightly low and we did give you potassium replacement. Your stool here today did not show blood in it and your vital signs have otherwise been stable. I have sent a prescription for antinausea medication to in [place]. If you are able to give a stool sample then we will send it for testing and notify you of any abnormal results. Otherwise I would recommend close follow-up with your primary care provider regarding your symptoms today. I have also listed the information for the general surgery practice - I would recommend making a follow-up appointment to discuss the blood in your stools and determine whether you should have a screening colonoscopy. Return to the emergency department with any worsening symptoms. Forms: PCP List Discharge Date/Time: 09/15/23 01:11
[2023-09-15] MEDS: POTASSIUM BICARB 25 MEQ TABLET PO ONE (00:23)
[2023-09-15] MEDS: FAMOTIDINE 20 MG/2 ML VIAL IVP STA (00:44)
[2023-09-15] MEDS: ACETAMINOPHEN 325 MG TABLET PO STA (00:44)
[2023-09-15 01:02] VITALS: BP 105/67
[2023-09-15] MEDS: ONDANSETRON ODT 4 MG Prepack 2 TL PRN (01:09)
[2023-09-15 01:11] VITALS: O2SAT 99
== END 2023-09-15 01:11 | disposition home or self-care (01) ==
LOC: ED 22:34
DX: R10.13 Epigastric pain (principal); K92.1 Melena; R19.7 Diarrhea, unspecified; E87.6 Hypokalemia
CPT/HCPCS: 36415; 80053; 81001; 81025; 82272; 83690; 85025; 85610; 96374; 96375; 99283; 99284; A9270; 81003; 87086

== ENCOUNTER 2023-10-28 09:03 | Outpatient (CLI) | payer BC ==
[2023-10-28 11:56] LABS: BASOPHILS # (AUTO) 0.1 10^3/uL (0.0-0.1); BASOPHILS % (AUTO) 0.8 %; EOSINOPHILS # (AUTO) 0.1 10^3/uL (0.0-0.7); EOSINOPHILS % (AUTO) 1.2 %; HCT - HEMATOCRIT 40.4 % (37.0-47.0); HGB - HEMOGLOBIN 12.4 g/dL (12.0-16.0); LYMPHOCYTES # (AUTO) 1.5 10^3/uL (1.5-3.5); LYMPHOCYTES % (AUTO) 17.6 %; MEAN CORPUSCULAR HEMOGLOBIN 26.3 pg (27.0-31.0); MEAN CORPUSCULAR HGB CONC 30.7 g/dL (32.0-36.0); MEAN CORPUSCULAR VOLUME 85.8 fL (81.0-99.0); MEAN PLATELET VOLUME 9.1 fL (7.9-10.8); MONOCYTES # (AUTO) 0.6 10^3/uL (0.0-1.0); MONOCYTES % (AUTO) 6.5 %; NEUTROPHILS # (AUTO) 6.4 10^3/uL (1.5-6.6); NEUTROPHILS % (AUTO) 73.7 %; PLT - PLATELET COUNT 537 10^3/uL (130-450); RED BLOOD COUNT 4.71 10^6/uL (4.20-5.40); RED CELL DISTRIBUTION WIDTH 13.3 % (12.0-15.0); WHITE BLOOD COUNT 8.6 x10^3/uL (4.8-10.8)
[2023-10-28 12:42] LABS: ALBUMIN 4.4 g/dL (3.2-5.5); ALBUMIN/GLOBULIN RATIO 1.5 (1.0-2.2); BILIRUBIN,TOTAL 0.8 mg/dL (0.2-1.0); CALCIUM 10.1 mg/dL (8.5-10.3); CREATININE 0.4 mg/dL (0.6-1.3); POTASSIUM 3.9 mmol/L (3.5-4.5); TOTAL PROTEIN 7.4 g/dL (6.4-8.9)
[2023-10-28 12:53] LABS: THYROID STIMULATING HORMONE 0.41 uIU/mL (0.34-5.60)
[2023-10-29 08:10] LABS: ESTRADIOL 55.8 pg/mL (.); PROGESTERONE 9.6 ng/mL (.)
== END 2023-10-28 09:04 | disposition home or self-care (01) ==
LOC: LAB.N 09:03
PROVIDERS: ATTEND Physician Assistant
DX: N80.9 Endometriosis, unspecified (principal); R53.83 Other fatigue
CPT/HCPCS: 36415; 80053; 82670; 83001; 83002; 84144; 84403; 84443; 85025

== ENCOUNTER 2023-11-03 11:22 | Outpatient (CLI) | payer BC | END 2023-11-03 11:23 | LOC: LAB.N 11:22 | PROVIDERS: ATTEND Physician Assistant | DX: R71.8 Other abnormality of red blood cells (principal); D75.839 Thrombocytosis, unspecified | CPT/HCPCS: 36415; 82728; 83540; 84466 ==

== ENCOUNTER 2023-11-29 05:11 | Emergency (ER) | payer BC ==
--- NOTE | 2023-11-29 05:26 | ED Physician Documentation ---
PD HPI HEENT - Stated complaint Stated Complaint: SORE THROAT - History obtained from History obtained from: Patient - Additional information Additional information: HPI from patient. Patient c/o sore throat since this morning. Denies fever. Pain is exacerbated with swallowing (odynophagia; describes pain as sharp "like glass"). 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 : None HEENT: None Psych: Depression, Anxiety, Panic attacks Musculoskeletal: None Derm: Eczema - Past Surgical History Past Surgical History: Yes General: Cholecystectomy /FRETTED STRING INSTRUMENT REPAIRER: Endometrial ablation, Hysterectomy - Present Medications Home Medications: Ambulatory Orders Medication Instructions Recorded Confirmed Ondansetron Odt [Zofran] 4 mg TL Q6H PRN #10 tablet 09/15/23 Citalopram Hydrobromide [Celexa] 40 mg PO DAILY 11/29/23 11/29/23 Iron Fum,Ps/Folic/Bcomp,C No.9 1 cap PO DAILY 11/29/23 11/29/23 [Iron Folate Plus Capsule] Multivit-Min/Iron/Folic Acid/K 1 tab PO DAILY 11/29/23 11/29/23 [Multi-Day Plus Minerals Tablet] Spironolactone [Aldactone] 25 mg PO DAILY 11/29/23 11/29/23 traZODone [Desyrel] 50 mg PO HS 11/29/23 11/29/23 - Allergies Allergies/Adverse Reactions: Allergies Allergy/AdvReac Type Severity Reaction Status Date / Time No Known Drug Allergies Allergy Verified 11/29/23 05:45 - Social History Does the pt smoke?: No Smoking Status: Never smoker Does the pt drink ETOH?: No Does the pt have substance abuse?: No - Immunizations Immunizations are current?: Yes - POLST Patient has POLST: No PD ED PE NORMAL - Vitals Vital signs reviewed: Yes - General General: Alert and oriented X 3, No acute distress, Well developed/nourished - HEENT HEENT: Moist mucous membranes, Other (mild posterior o/p erythema, no exudate) - Neck Neck: Supple, no meningeal sign Results - Vitals Vitals: Vital Signs - 24 hr 11/29/23 11/29/23 05:23 06:27 Temperature 37.1 C Heart Rate 65 72 Respiratory 18 18 Rate Blood Pressure 147/95 H 140/90 H O2 Saturation 98 98 Oxygen O2 Source Room air - Labs Labs: Laboratory Tests 11/29/23 05:50 Group A Strep Rapid Negative PD Medical Decision Making - ED course Complexity details: considered differential, d/w patient ED course: rapid strep negative. Given 10mg PO decadron, take-home pack of vicodin. Results d/w patient, return precautions reviewed Departure - Departure Disposition: Home, Self Care Clinical Impression: Pharyngitis Qualifiers: Pharyngitis/tonsillitis etiology: unspecified etiology Qualified Code(s): J02.9 - Acute pharyngitis, unspecified Condition: Good Instructions: ED Pharyngitis Viral Report Pending Comments: The rapid strep test was negative. The lab will next perform a culture on this sample; this is a significantly more accurate test to rule out bacterial pharyngitis. It takes 1 to 2 days for the results to return. If the culture is positive for bacterial infection, you will get a phone call at home from this emergency department and an antibiotic can then be electronically submitted to your pharmacy of choice. You will not hear from us if the swab is negative. Forms: Activity restrictions Discharge Date/Time: 11/29/23 06:27
[2023-11-29 05:37] VITALS: O2SAT 98
[2023-11-29] MEDS: DEXAMETHASONE 10 MG/ML VIAL PO STA (05:47)
[2023-11-29] MEDS: CHERRY SYRUP 10 ML UDC PO ONE (05:47)
[2023-11-29] MEDS: HYDROcod/ACET 5/325 Prepack 4 PO STA (05:48)
[2023-11-29 06:09] LABS: RAPID STREP SCREEN Negative (Negative)
[2023-11-29 06:30] VITALS: BP 140/90
== END 2023-11-29 06:27 | disposition home or self-care (01) ==
LOC: ED 05:11
DX: J02.9 Acute pharyngitis, unspecified (principal)
CPT/HCPCS: 87070; 87430; 99283; A9270

== ENCOUNTER 2023-12-19 13:24 | Outpatient (CLI) | payer BC ==
[2023-12-19 20:08] LABS: BASOPHILS # (AUTO) 0.1 10^3/uL (0.0-0.1); BASOPHILS % (AUTO) 0.9 %; EOSINOPHILS # (AUTO) 0.1 10^3/uL (0.0-0.7); EOSINOPHILS % (AUTO) 1.4 %; HCT - HEMATOCRIT 39.2 % (37.0-47.0); HGB - HEMOGLOBIN 12.2 g/dL (12.0-16.0); LYMPHOCYTES % (AUTO) 22.7 %; MEAN CORPUSCULAR HEMOGLOBIN 26.6 pg (27.0-31.0); MEAN CORPUSCULAR HGB CONC 31.1 g/dL (32.0-36.0); MEAN CORPUSCULAR VOLUME 85.4 fL (81.0-99.0); MEAN PLATELET VOLUME 9.1 fL (7.9-10.8); MONOCYTES # (AUTO) 0.6 10^3/uL (0.0-1.0); MONOCYTES % (AUTO) 6.7 %; NEUTROPHILS # (AUTO) 5.8 10^3/uL (1.5-6.6); PLT - PLATELET COUNT 474 10^3/uL (130-450); RED BLOOD COUNT 4.59 10^6/uL (4.20-5.40); RED CELL DISTRIBUTION WIDTH 14.1 % (12.0-15.0); WHITE BLOOD COUNT 8.6 x10^3/uL (4.8-10.8)
[2023-12-19 20:26] LABS: CALCIUM 9.7 mg/dL (8.5-10.3); CREATININE 0.7 mg/dL (0.6-1.3)
[2023-12-19 20:41] LABS: FERRITIN 26.8 ng/mL (11.0-306.8)
== END 2023-12-19 13:25 | disposition home or self-care (01) ==
LOC: LAB.N 13:24
PROVIDERS: ATTEND Physician Assistant
DX: Z51.81 Encounter for therapeutic drug level monitoring (principal); E61.1 Iron deficiency; Z79.899 Other long term (current) drug therapy
CPT/HCPCS: 36415; 80048; 82728; 83540; 84466; 85025

== ENCOUNTER 2024-01-08 09:17 | Outpatient (CLI) | payer BC ==
[~2024-01-08 09:17] MED LIST: GADOTERATE MEGLUMINE 10 MMOL/20 ML VIAL ONE; GADOTERATE MEGLUMINE 5 MMOL/10 ML VIAL ONE
[2024-01-08] MEDS: GADOTERATE MEGLUMINE 10 MMOL/20 ML VIAL IVP ONE (10:21)
--- NOTE | 2024-01-08 15:24 | MRI Report ---
PROCEDURE: Brain W/WO INDICATIONS: HEADACHE CONTRAST: CLARISCAN 24 ML TECHNIQUE: Noncontrast axial T1 spin echo, axial T2 fast spin echo, sagittal and axial FLAIR, coronal T2 fast sp in echo, axial gradient echo, axial diffusion and ADC through the brain. After the administration of contrast, axial and coronal T1 spin echo with fat saturation through the brain. COMPARISON: None. FINDINGS: Image quality: Excellent. CSF spaces: Basal cisterns are patent. No extra-axial fluid collections. Ventricles are normal in size and shape. Brain: No midline shift. No intracranial bleeds or masses. No abnormal intracranial enhancement. There is cerebral volume loss for age. There is periventricular white matter chronic small vessel is chemic change. The brainstem appears normal. Diffusion-weighted images demonstrate no acute ischemi c insults. No chronic ischemic insults. Normal intravascular flow voids are present. Skull and face: Calvarial marrow is normal in signal. Orbits appear normal. Sinuses: Mucous retention cysts in the left maxillary and left sphenoid sinuses. Sinuses and mastoid s otherwise appear clear. IMPRESSION: No cause for patient's symptoms is identified. Normal appearance of the brain. Reviewed by: Mariano Tran MD on 01/08/2024 3:22 PM PDT Approved by: Mariano Tran MD on 01/08/2024 3:22 PM PDT Station ID: [id number]
== END 2024-01-08 09:18 | disposition home or self-care (01) ==
LOC: DI 09:17
PROVIDERS: ATTEND Physician Assistant
DX: R51.9 Headache, unspecified (principal)
CPT/HCPCS: 70553; A9575

== ENCOUNTER 2024-01-25 14:30 | Outpatient (CLI) | payer BC ==
[2024-01-25 18:17] LABS: CALCIUM 9.9 mg/dL (8.5-10.3); CREATININE 0.6 mg/dL (0.6-1.3); POTASSIUM 3.6 mmol/L (3.5-4.5)
[2024-01-25 18:34] LABS: FERRITIN 46.3 ng/mL (11.0-306.8)
== END 2024-01-25 14:31 | disposition home or self-care (01) ==
LOC: LAB.N 14:30
PROVIDERS: ATTEND Physician Assistant
DX: Z51.81 Encounter for therapeutic drug level monitoring (principal); E28.2 Polycystic ovarian syndrome; L68.0 Hirsutism; E61.1 Iron deficiency
CPT/HCPCS: 36415; 80048; 82670; 82728; 83540; 84144; 84403; 84466

== ENCOUNTER 2024-02-19 19:25 | Emergency (ER) | payer BC ==
[2024-02-19 19:38] VITALS: BP 153/104; O2SAT 98
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
[2024-02-19] MEDS: LIDOCAINE 1% 2 ML VIAL MC ONE (20:26)
[2024-02-19] MEDS: cefTRIAXone 500 MG VIAL IM STA (20:26)
[2024-02-19] MEDS: IBUPROFEN 800 MG TABLET PO STA (20:27)
[2024-02-19] MEDS: AZITHROMYCIN 250 MG TABLET PO STA (20:27)
[2024-02-19] MEDS: metroNIDAZOLE 250 MG TABLET PO STA (20:27)
[2024-02-19] MEDS: ONDANSETRON ODT 4 MG TABLET TL STA (20:28)
[2024-02-19 20:38] LABS: HIV RAPID SCREEN NEGATIVE (NEGATIVE)
[2024-02-24 01:08] LABS: HCV AB Non Reactive (Non Reactive)
== END 2024-02-19 21:00 | disposition home or self-care (01) ==
LOC: ED 19:25
DX: T76.21XA Adult sexual abuse, suspected, initial encounter (principal); R10.2 Pelvic and perineal pain; I10 Essential (primary) hypertension; F32.A Depression, unspecified; F41.9 Anxiety disorder, unspecified
CPT/HCPCS: 36415; 86703; 86803; 99284; A9270; Q0162

== ENCOUNTER 2024-02-25 08:00 | Outpatient (CLI) | payer BC ==
[2024-02-25 12:40] LABS: BILIRUBIN,URINE NEGATIVE (NEGATIVE); GLUCOSE, URINE (UA) NEGATIVE (NEGATIVE); KETONES,URINE (UA) NEGATIVE (NEGATIVE); LEUKOCYTE ESTERASE, URINE NEGATIVE (NEGATIVE); NITRITE,URINE NEGATIVE (NEGATIVE); OCCULT BLOOD,URINE NEGATIVE (NEGATIVE); PROTEIN,URINE NEGATIVE (NEGATIVE); UROBILINOGEN,URINE 0.2 (NORMAL) E.U./dL (NORMAL)
[2024-02-25 12:43] LABS: CLARITY,URINE HAZY (CLEAR)
[2024-02-25 12:55] LABS: BACTERIA,URINE Moderate /HPF (None Seen); RBC,URINE None Seen /HPF (0-5); SQUAMOUS EPITHELIAL CELL,UR MANY Squamous (<= Few); WBC,URINE 0-3 /HPF (0-5)
== END 2024-02-25 23:59 | disposition home or self-care (01) ==
LOC: LAB 08:00
PROVIDERS: ATTEND Physician Assistant
DX: R30.0 Dysuria (principal)
CPT/HCPCS: 81001; 81003

== ENCOUNTER 2024-02-29 11:45 | Outpatient (CLI) | payer BC ==
--- NOTE | 2024-02-29 19:29 | XRAY Report ---
PROCEDURE: Foot 1-2V RT INDICATIONS: FOOT PAIN, RIGHT TECHNIQUE: 2 views of the foot were acquired. COMPARISON: None. FINDINGS: Bones: No fractures or dislocations. No suspicious bony lesions. Tiny plantar calcaneal spur. Soft tissues: No tibiotalar joint effusion. Achilles tendon appears normal. IMPRESSION: No acute bony abnormality. Reviewed by: Sana Bae MD on 02/29/2024 7:27 PM PDT Approved by: Sana Bae MD on 02/29/2024 7:27 PM PDT Station ID: [id number]
== END 2024-02-29 12:00 | disposition home or self-care (01) ==
LOC: DI.N 11:45
PROVIDERS: ATTEND Physician Assistant Medical
DX: M79.671 Pain in right foot (principal)